=== PATIENT | male | born 1960 | race Caucasian/White ===

== ENCOUNTER 2016-11-22 21:18 | Inpatient (IN) ==
--- NOTE | 2016-11-23 01:23 | Internal Med History&Physical ---
<Giorgi Mcgee - Last Filed: 11/23/16 02:37> Date of Encounter: 11/23/16 Time of Encounter: 01:16 Assessment and Plan (1) Acute and chronic respiratory failure Status: Acute Patient did need additional oxygen requirement of 5 L up from home dose of 3 L, but he is back down to his baseline now Likely due to pneumonia vs. COPD exacerbation vs. edema/effusion CXR done at [facility] only demonstrated bibasilar opacity but did not comment on any fluid Will obtain CT chest for further assessment Continue on supplemental oxygen, breathing treatments Qualifiers: Qualified Code(s): J96.20 - Acute and chronic respiratory failure, unspecified whether with hypoxia or hypercapnia (2) ESRD on dialysis Status: Acute Consult Nephrology, appreciate management of dialysis on MWF He supposedly transferred here due to possibility of needing urgent dialysis, but this is not indicated at this point Will continue to monitor Cr, electrolytes, and avoid nephrotoxic agents (3) HCAP (healthcare-associated pneumonia) Status: Acute He currently receives dialysis and thus qualifies for HCAP Received Vanc/Zosyn while in [facility], will continue them here Obtain blood and sputum cultures, await sensitivities Awaiting chest CT as above for further investigation of bibasilar opacities (4) Abdominal pain Status: Chronic Patient complains of chronic lower abdominal pain worse after meals; s/p kassy/ appy Will start workup with non-contrast CT ab/pelvis Given that he is likely a vasculpath, consider SMA syndrome with MRA in future Qualifiers: Qualified Code(s): R10.9 - Unspecified abdominal pain (5) Hypertension Status: Chronic Blood pressures have been stable since admission, will closely monitor Will continue with home dose of Clonidine, Hydralazine, Norvasc, and Lisinopril Qualifiers: Qualified Code(s): I10 - Essential (primary) hypertension (6) COPD (chronic obstructive pulmonary disease) Status: Chronic Patient not having any additional sputum production and no wheezing heard on auscultation; does not appear to be in exacerbation Will continue scheduled breathing treatments, supplemental oxygen, and monitor pulse oximetry Qualifiers: Qualified Code(s): J44.9 - Chronic obstructive pulmonary disease, unspecified (7) Elevated troponin Status: Acute Troponin collected in previous facility of 0.25 He likely has chronic elevation in setting of ESRD and h/o CAD No chest pain currently so repeat troponins not indicated at this time (8) Insulin dependent diabetes mellitus Status: Chronic Hold home anti-diabetic medication for now Start on low dose SSI HENRIS patricia (9) DVT prophylaxis Status: Acute Heparin 5000 units BID Internal Medicine - H&P: HPI Chief complaint: Shortness of breath Admitted From: Hospital to Hospital Transfer Plans for Post Hospital Care: Home History of present illness: Mr. Prater is a 56 year old male who is transferred from [facility] with progressive shortness of breath over the past 3 days. He has history of end-stage renal disease on dialysis Sunday managed by Dr. Key. Patient's is at bedside and is able to assist with history. He states that he underwent dialysis earlier today and was severely short of breath afterwards and went to the hospital. Chest x-ray demonstrated bibasilar infiltrate concerning for pneumonia and he was given Vancomycin and Zosyn. He was transferred to the hospital due to fluid in the lungs possibly requiring dialysis, which they did not have available at that facility. He is normally on 3 L of oxygen throughout the day for COPD and has inhalers at home. Patient also states that he has had a nonproductive cough. states that his appetite has also been poor recently, and he has lost 7 pounds in the last week. 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 He also has a history of coronary artery disease status post 3 stents. Currently, patient states his breathing is slightly better while still on his home dose of 3 L of oxygen. He is complaining of abdominal pain, but states this chronic for him and they have not found out the cause. He denies any fevers, vomiting, diarrhea, blood in the stool or urine. Internal Medicine - H&P: Meds Albuterol Sulfate [Ventolin Hfa] 1 - 2 puff IH Q4-6H PRN 11/23/16 [History] Amlodipine [Norvasc] 5 - 10 mg PO DAILY 11/23/16 [History] Aspirin 325 mg PO DAILY 11/23/16 [History] Atenolol [Tenormin] 25 mg PO DAILY 11/23/16 [History] Atorvastatin Calcium [Lipitor] 20 mg PO QPM 11/23/16 [History] CloNIDine HCl [Clonidine HCl] 0.3 mg PO TID 11/23/16 [History] Docusate Sodium [Dok] 200 mg PO DAILY 11/23/16 [History] EPINEPHrine [Epipen] 0.3 mg IM ONCE PRN 11/23/16 [History] Ergocalciferol (VITAMIN D2) [Vitamin D2] 50,000 unit PO MO 11/23/16 [History] Escitalopram [Lexapro] 20 mg PO DAILY 11/23/16 [History] Furosemide [Lasix] 80 mg PO BID 11/23/16 [History] Hydralazine HCl 100 mg PO TID 11/23/16 [History] Insulin ASPART [NovoLOG] 2 - 10 unit SQ TID PRN 11/23/16 [History] Insulin Glargine [Lantus] 25 unit SQ HS 11/23/16 [History] Isosorbide MONOnitrate (24 HR) [Imdur] 60 mg PO DAILY 11/23/16 [History] LORazepam [Ativan] 1 mg PO BID PRN 11/23/16 [History] Lanthanum Carbonate [Fosrenol] 1,000 mg PO TIDWM 11/23/16 [History] Lisinopril [Zestril] 10 mg PO BID 11/23/16 [History] Lubiprostone [Amitiza] 24 mcg PO DAILY 11/23/16 [History] Methadone 10 mg PO Q8HR 11/23/16 [History] Nitroglycerin [Nitrostat] 0.4 mg SL Q5M PRN 11/23/16 [History] Omeprazole 20 mg PO DAILY 11/23/16 [History] Ondansetron ODT [Zofran ODT] 4 mg SL Q4H PRN 11/23/16 [History] Renal Vitamin [Renal Caps Softgel] 1 mg PO DAILY 11/23/16 [History] Tamsulosin HCl [Flomax] 0.4 - 0.8 mg PO DAILY 11/23/16 [History] Tizanidine HCl [Zanaflex] 4 mg PO TID PRN 11/23/16 [History] Trazodone HCl 100 mg PO HS 11/23/16 [History] Budesonide Neb [Pulmicort Neb] 0.5 mg IH BIDR #1 inhsol 11/25/16 [Rx] Levofloxacin 500 mg PO Q48H #3 tablet 11/25/16 [Rx] Simvastatin [Zocor] 40 mg PO HS 30 Days 11/25/16 [Rx] Allergies BEE VENOM Allergy (Uncoded 11/23/16 09:18) Difficulty Swallowing BARIUM IODIDE Adverse Reaction (Uncoded 11/23/16 09:18) Vomiting IVP DYE Adverse Reaction (Uncoded 11/23/16 09:18) Vomiting All Systems PM: A 10-system review of systems was performed and is negative for pertinent findings except as documented above in the HPI. - Constitutional Constitutional: lethargy, weight loss, no chills, no fever(s), no night sweats - EENT Eyes: no change in vision, no discharge, no pain, no photophobia Ears: no ear discharge, no ear pain, no tinnitus Nose, mouth and throat: no dysphagia, no nasal discharge, no neck pain, no sore throat - Cardiovascular Cardiovascular ROS IM: dyspnea, no chest pain, no diaphoresis, no lightheadedness, no palpitations, no syncope - Respiratory Respiratory: cough, dyspnea, no wheezing, no excessive phlegm production, no change in phlegm color - Gastrointestinal Gastrointestinal: abdominal pain (lower quadrants), nausea, no diarrhea, no hematemesis, no hematochezia, no melena, no vomiting - Genitourinary Genitourinary ROS male: difficulty urinating - Musculoskeletal Musculoskeletal ROS IM: numbness, tingling - Integumentary Integumentary IM: no rash, no unusual bruising - Neurological Neurological ROS: numbness, tingling, no confusion, no convulsions, no focal weakness, no tremor(s) - Hematologic/Lymphatic Hematologic/Lymphatic: no easy bruising - Constitutional Vitals: Temp Pulse Resp BP Pulse Ox 98.1 F 67 17 162/85 90 L 11/23/16 00:25 11/23/16 00:25 11/23/16 00:25 11/23/16 00:25 11/23/16 00:25 General appearance: Present: cooperative, A&O X 3, pleasant, no acute distress, answers questions appropriately - Head Head exam: Present: atraumatic, normocephalic - Eye Eye exam: Present: PERRL, conjuntiva pink, sclera anicteric - Neck Neck exam general surgery: Present: supple, trachea midline. Absent: lymphadenopathy - Respiratory Respiratory exam: Present: rales. Absent: accessory muscle use, rhonchi, wheezes - Cardiovascular Cardiovascular exam: Present: RRR, +S1, +S2. Absent: diastolic murmur, gallop, rubs, systolic murmur - GI/Abdominal GI/Abdominal exam: Present: normal bowel sounds, soft, tenderness (in lower quadrants, not worse with palpation ), no peritoneal signs. Absent: distended, firm, guarding - Extremities Exam Extremities exam: Present: warm, radial pulses palpable and symetrical. Absent : calf tenderness, cyanotic, pedal edema - Neurological Exam Neurological exam: Present: alert, oriented X3, no focal deficits. Absent: facial droop, speech deficit Additional comments: abnormal tongue movements suggestive of tardive dyskinesia - Skin Skin exam: Present: dry, intact <Jose M Gunderson - Last Filed: 11/29/16 05:57> Date of Encounter: 11/23/16 Internal Medicine - H&P: HPI History of present illness: Mr. Prater is a 56 year old male admitted to [facility] as a hospital transfer from [facility] ([place], [place]) emergency department where he presented with complaints of difficulty breathing. Transfer diagnoses included : a/c hypoxic respiratory failure; AE COPD; ESRD and hemodialysis dependent with volume overload; bibasilaratelectasis/ pneumonia; elevated troponin I measurement. The patient was visited and interviewed and examined. For this encounter, I have reviewed the documentation, treatment plan, and medical decision making. I examined this patient and my medical decision-making was reviewed with the Resident Physician. I agree with the documented findings, disposition and treatment plan as described except to the extent set forth below. Laboratory and radiographic database was reviewed, considered and discussed. Given the patient's presenting concerns, past medical history, clinical findings and symptoms, he is admitted at this time to undergo further evaluation and disposition. Orders written. Past Med Surg Social Fam HX - Past Medical History Source: old records reviewed Medical history: arthritis, CHF, COPD, coronary artery disease, diabetes, dialysis, GERD, hyperlipidemia, hypertension, osteoporosis, peripheral artery disease, renal disease, other Psychiatric history: anxiety, depression, other - Past Surgical History Surgical History: angioplasty/stent, appendectomy, arthroscopy, cataract, cholecystectomy, knee replacement, orthopedic, other, vascular surgery, other - Social History Smoking Status: Former smoker Alcohol use: unknown Drug use: unknown Occupational status: unemployed, disabled Current living situation: With Family Activity Level: Mostly sedentary Recent Out of Country Travel Within the Last 8 Weeks: No Exposure or Possible Exposure to Illness During Travel: No All Systems PM: A 10-system review of systems was performed and is negative for pertinent findings except as documented above in the HPI. - Constitutional Vitals: Temp Pulse Resp BP Pulse Ox 98.4 F 68 18 172/75 100 11/25/16 12:09 11/25/16 12:09 11/25/16 12:09 11/25/16 12:09 11/25/16 12:09 Internal Med - H&P Results - Labs CBC & Chem 7: 11/25/16 05:23 11/25/16 05:23 Labs: 11/23/16 06:27 VBG pH 7.46 H VBG pCO2 41 VBG pO2 62 H VBG HCO3 29.2 H Abnormal lab results WBC 4.2 K/mcL (4.3-11.1) L 11/25/16 05:23 RBC 4.06 M/mcL (4.19-5.50) L 11/25/16 05:23 Hgb 12.0 g/dL (12.9-16.9) L 11/25/16 05:23 Lymphocytes # 0.5 K/mcL (0.6-4.6) L 11/23/16 06:27 PT 16.1 Seconds (9.4-12.1) H 11/23/16 06:27 APTT 39.1 Seconds (26.0-36.0) H 11/23/16 06:27 VBG pH 7.46 pH Units (7.32-7.42) H 11/23/16 06:27 VBG pO2 62 mmHg (25-40) H 11/23/16 06:27 VBG HCO3 29.2 mEq/L (21-27) H 11/23/16 06:27 Potassium 5.2 mEq/L (3.5-4.5) H 11/25/16 05:23 Chloride 97 mEq/L (98-109) L 11/25/16 05:23 BUN 42 mg/dL (8-26) H 11/25/16 05:23 Creatinine 2.69 mg/dL (0.72-1.25) H 11/25/16 05:23 Est GFR ( Amer) 30 (> 60) L 11/25/16 05:23 Est GFR (Non-Af Amer) 25 (> 60) L 11/25/16 05:23 Glucose 131 mg/dL (70-99) H 11/25/16 05:23 POC Glucose 133 (58-89) H 11/25/16 11:46 Ionized Calcium 1.12 mmol/L (1.15-1.35) L 11/23/16 06:27 Magnesium 1.4 mg/dL (1.6-2.6) L 11/23/16 06:27 AST 40 Units/L (5-34) H 11/23/16 06:27 Alkaline Phosphatase 419 Units/L (38-126) H 11/23/16 06:27 Troponin I 0.30 ng/mL (0-0.03) H* 11/23/16 14:26 C-Reactive Protein 144 mg/L (Less than 5) H 11/23/16 11:13 Albumin 2.0 g/dL (3.5-5.0) L 11/23/16 06:27 Globulin 4.0 g/dL (2.4-3.5) H 11/23/16 06:27 Albumin/Globulin Ratio 0.5 (1.1-2.2) L 11/23/16 06:27 Triglycerides 150 mg/dL (< 150) H 11/23/16 06:27 HDL Cholesterol 15 mg/dL (40-59) L 11/23/16 06:27 Cholesterol/HDL Ratio 5.3 (0-4.9) H 11/23/16 06:27 Vancomycin Trough 8.8 mcg/mL (10-20) L 11/23/16 19:14 Laboratory Last Values WBC 4.2 K/mcL (4.3-11.1) L 11/25/16 05:23 RBC 4.06 M/mcL (4.19-5.50) L 11/25/16 05:23 Hgb 12.0 g/dL (12.9-16.9) L 11/25/16 05:23 Hct 38.0 % (37.5-50.1) 11/25/16 05:23 MCV 93.6 fL (83.0-100.0) 11/25/16 05:23 MCH 29.6 pg (28.0-33.3) 11/25/16 05:23 MCHC 31.6 g/dL (31.6-35.5) 11/25/16 05:23 RDW 14.2 % (11.5-14.5) 11/25/16 05:23 Plt Count 159 K/mcL (140-400) 11/25/16 05:23 MPV 10.6 fL (9.4-12.4) 11/25/16 05:23 Immature Gran % 0.8 % (0-4) 11/23/16 06:27 Seg Neutrophils % 88.0 % 11/23/16 06:27 Lymphocytes % 7.3 % 11/23/16 06:27 Monocytes % 3.7 % 11/23/16 06:27 Eosinophils % 0.0 % 11/23/16 06:27 Basophils % 0.2 % 11/23/16 06:27 Neutrophils # 5.8 K/mcL (1.6-8.9) 11/23/16 06:27 Lymphocytes # 0.5 K/mcL (0.6-4.6) L 11/23/16 06:27 Monocytes # 0.2 K/mcL (0.0-1.3) 11/23/16 06:27 Eosinophils # 0.0 K/mcL (0.0-0.6) 11/23/16 06:27 Basophils # 0.0 K/mcL (0.0-0.2) 11/23/16 06:27 PT 16.1 Seconds (9.4-12.1) H 11/23/16 06:27 INR 1.5 11/23/16 06:27 APTT 39.1 Seconds (26.0-36.0) H 11/23/16 06:27 VBG pH 7.46 pH Units (7.32-7.42) H 11/23/16 06:27 VBG pCO2 41 mmHg (41-51) 11/23/16 06:27 VBG pO2 62 mmHg (25-40) H 11/23/16 06:27 VBG HCO3 29.2 mEq/L (21-27) H 11/23/16 06:27 Sodium 137 mEq/L (136-145) 11/25/16 05:23 Potassium 5.2 mEq/L (3.5-4.5) H 11/25/16 05:23 Chloride 97 mEq/L (98-109) L 11/25/16 05:23 Carbon Dioxide 24 mEq/L (19-29) 11/25/16 05:23 BUN 42 mg/dL (8-26) H 11/25/16 05:23 Creatinine 2.69 mg/dL (0.72-1.25) H 11/25/16 05:23 Est GFR ( Amer) 30 (> 60) L 11/25/16 05:23 Est GFR (Non-Af Amer) 25 (> 60) L 11/25/16 05:23 BUN/Creatinine Ratio 16 (6-26) 11/25/16 05:23 Glucose 131 mg/dL (70-99) H 11/25/16 05:23 POC Glucose 133 (58-89) H 11/25/16 11:46 Est Mean Plasma Glucose 91 mg/dl 11/23/16 06:27 Hemoglobin A1c 4.8 % (-5.6) 11/23/16 06:27 Calculated Osmolality 296 (280-300) 11/25/16 05:23 Lactic Acid 0.9 mmol/L (0.5-2.2) 11/23/16 06:27 Calcium 9.6 mg/dL (8.6-10.8) 11/25/16 05:23 Ionized Calcium 1.12 mmol/L (1.15-1.35) L 11/23/16 06:27 Phosphorus 4.1 mg/dL (2.3-4.7) 11/23/16 06:27 Magnesium 1.4 mg/dL (1.6-2.6) L 11/23/16 06:27 Total Bilirubin 1.0 mg/dL (0.2-1.2) 11/23/16 06:27 AST 40 Units/L (5-34) H 11/23/16 06:27 ALT 19 Units/L (0-55) 11/23/16 06:27 Alkaline Phosphatase 419 Units/L (38-126) H 11/23/16 06:27 Troponin I 0.30 ng/mL (0-0.03) H* 11/23/16 14:26 C-Reactive Protein 144 mg/L (Less than 5) H 11/23/16 11:13 Serum Total Protein 6.0 g/dL (6.0-8.3) 11/23/16 06:27 Albumin 2.0 g/dL (3.5-5.0) L 11/23/16 06:27 Globulin 4.0 g/dL (2.4-3.5) H 11/23/16 06:27 Albumin/Globulin Ratio 0.5 (1.1-2.2) L 11/23/16 06:27 Triglycerides 150 mg/dL (< 150) H 11/23/16 06:27 Cholesterol 80 mg/dL (< 200) 11/23/16 06:27 LDL Cholesterol, Calc 35 mg/dL (0-99) 11/23/16 06:27 VLDL Cholesterol, Calc 30 mg/dL (< 31) 11/23/16 06:27 HDL Cholesterol 15 mg/dL (40-59) L 11/23/16 06:27 Cholesterol/HDL Ratio 5.3 (0-4.9) H 11/23/16 06:27 TSH 2.062 mcIU/mL (0.350-4.840) 11/23/16 11:13 Vancomycin Trough 8.8 mcg/mL (10-20) L 11/23/16 19:14 Hep Bs Antigen Nonreactive (Nonreactive) 11/24/16 09:23 Hep Bs Antibody 0.08 mIU/mL 11/24/16 09:23 - ABG Interpretation ABG results: 11/23/16 06:27 VBG pH 7.46 H VBG pCO2 41 VBG pO2 62 H VBG HCO3 29.2 H - Impressions ITS Impressions Abdomen/Pelvis CT 11/23/16 08:30 IMPRESSION: 1. Diffuse infectious bronchiolitis in both lungs with superimposed multifocal pneumonia that is most prominent in the lower lobes. 2. Loculated fluid in the posteromedial base of the left hemithorax the measuring approximately 9.4 cm x 6.3 cm x 3.7 cm. The most likely consideration is loculated left pleural effusion; there are no definite findings of empyema. Alternately, this could represents an intrapulmonary abscess within the left lower lobe. 3. Trace free-flowing bilateral pleural effusions and severe anasarca. 4. Minimal bronchial wall thickening with mild to moderate involvement in the right lower lobe, likely bronchitis. 5. No definite acute abnormalities are identified in the abdomen or pelvis. 6. Mild cardiomegaly with at least mild coronary atherosclerotic calcifications with suspected changes of stent grafting. 7. Mildly dilated pulmonary arteries, a finding that can be seen with pulmonary hypertension. 8. A few enlarged mediastinal lymph nodes are likely reactive. 9. Moderate hepatosplenomegaly. 10. Mild to moderate stool volume. 11. Circumferential urinary bladder wall thickening could be related to incomplete distention, chronic outlet obstruction given mild prostatomegaly, and/or cystitis. D/ / Jaswinder Barron MD / Jaswinder Barron MD Interpreting Provider: Jaswinder Barron MD Chest CT 11/23/16 08:30 IMPRESSION: 1. Diffuse infectious bronchiolitis in both lungs with superimposed multifocal pneumonia that is most prominent in the lower lobes. 2. Loculated fluid in the posteromedial base of the left hemithorax the measuring approximately 9.4 cm x 6.3 cm x 3.7 cm. The most likely consideration is loculated left pleural effusion; there are no definite findings of empyema. Alternately, this could represents an intrapulmonary abscess within the left lower lobe. 3. Trace free-flowing bilateral pleural effusions and severe anasarca. 4. Minimal bronchial wall thickening with mild to moderate involvement in the right lower lobe, likely bronchitis. 5. No definite acute abnormalities are identified in the abdomen or pelvis. 6. Mild cardiomegaly with at least mild coronary atherosclerotic calcifications with suspected changes of stent grafting. 7. Mildly dilated pulmonary arteries, a finding that can be seen with pulmonary hypertension. 8. A few enlarged mediastinal lymph nodes are likely reactive. 9. Moderate hepatosplenomegaly. 10. Mild to moderate stool volume. 11. Circumferential urinary bladder wall thickening could be related to incomplete distention, chronic outlet obstruction given mild prostatomegaly, and/or cystitis. D/ / Jaswinder Barron MD / Jaswinder Barron MD Interpreting Provider: Jaswinder Barron MD Abdomen CTA 11/25/16 08:00 IMPRESSION: 1. 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 Otherwise unremarkable CTA of the abdomen. Mild diffuse atherosclerotic plaque. 2. Re-demonstration of loculated left pleural effusion and bibasilar opacification, left greater than right. 3. Small quantity of intraabdominal ascites. Diffuse mesenteric and retroperitoneal edema with anasarca suggesting an element of right heart failure. D/ / 11/25/2016 09:36:14 Candido Aponte MD / griselda Interpreting Provider: Candido Aponte MD Abdomen/Pelvis CT 11/23/16 08:30 IMPRESSION: 1. Diffuse infectious bronchiolitis in both lungs with superimposed multifocal pneumonia that is most prominent in the lower lobes. 2. Loculated fluid in the posteromedial base of the left hemithorax the measuring approximately 9.4 cm x 6.3 cm x 3.7 cm. The most likely consideration is loculated left pleural effusion; there are no definite findings of empyema. Alternately, this could represents an intrapulmonary abscess within the left lower lobe. 3. Trace free-flowing bilateral pleural effusions and severe anasarca. 4. Minimal bronchial wall thickening with mild to moderate involvement in the right lower lobe, likely bronchitis. 5. No definite acute abnormalities are identified in the abdomen or pelvis. 6. Mild cardiomegaly with at least mild coronary atherosclerotic calcifications with suspected changes of stent grafting. 7. Mildly dilated pulmonary arteries, a finding that can be seen with pulmonary hypertension. 8. A few enlarged mediastinal lymph nodes are likely reactive. 9. Moderate hepatosplenomegaly. 10. Mild to moderate stool volume. 11. Circumferential urinary bladder wall thickening could be related to incomplete distention, chronic outlet obstruction given mild prostatomegaly, and/or cystitis. D/ / Jaswinder Barron MD / Jaswinder Barron MD Interpreting Provider: Jaswinder Barron MD Chest CT 11/23/16 08:30 IMPRESSION: 1. Diffuse infectious bronchiolitis in both lungs with superimposed multifocal pneumonia that is most prominent in the lower lobes. 2. Loculated fluid in the posteromedial base of the left hemithorax the measuring approximately 9.4 cm x 6.3 cm x 3.7 cm. The most likely consideration is loculated left pleural effusion; there are no definite findings of empyema. Alternately, this could represents an intrapulmonary abscess within the left lower lobe. 3. Trace free-flowing bilateral pleural effusions and severe anasarca. 4. Minimal bronchial wall thickening with mild to moderate involvement in the right lower lobe, likely bronchitis. 5. No definite acute abnormalities are identified in the abdomen or pelvis. 6. Mild cardiomegaly with at least mild coronary atherosclerotic calcifications with suspected changes of stent grafting. 7. Mildly dilated pulmonary arteries, a finding that can be seen with pulmonary hypertension. 8. A few enlarged mediastinal lymph nodes are likely reactive. 9. Moderate hepatosplenomegaly. 10. Mild to moderate stool volume. 11. Circumferential urinary bladder wall thickening could be related to incomplete distention, chronic outlet obstruction given mild prostatomegaly, and/or cystitis. D/ / Jaswinder Barron MD / Jaswinder Barron MD Interpreting Provider: Jaswinder Barron MD Abdomen CTA 11/25/16 08:00 IMPRESSION: 1. 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 Otherwise unremarkable CTA of the abdomen. Mild diffuse atherosclerotic plaque. 2. Re-demonstration of loculated left pleural effusion and bibasilar opacification, left greater than right. 3. Small quantity of intraabdominal ascites. Diffuse mesenteric and retroperitoneal edema with anasarca suggesting an element of right heart failure. D/ / 11/25/2016 09:36:14 Candido Aponte MD / griselda Interpreting Provider: Candido Aponte MD - Attending Attestation My signature below is to certify that this patient is under my care and that I, or the Resident Physician working with me, has had a [id number] encounter with this patient. Plan of care has been reviewed and discussed in detail with the patient. Questions addressed. Advance care directive discussion briefly addressed. Patient does not declare any healthcare restrictions at this time. Outpatient medications schedules will be reviewed, confirmed and facilitated as appropriate. Reconciliation of home treatments including adjustments, substitutions and reintroduction into the treatment regimen will address necessary maintenance therapies for chronic pre-existing medical conditions. Smoking cessation counseling briefly addressed. Patient declares self a nonsmoker. Hospital course will be dependent upon clinical findings, treatment response and potential consultative interventions. The patient is at risk for acute clinical decline and morbidity given presenting chief complaints, findings and associated comorbid conditions. Condition is serious. Prognosis is guarded. CODE STATUS is full.
[2016-11-23] MEDS ORDERED: Acetaminophen 325 MG TABLET PO PRN (01:51)
[2016-11-23] MEDS ORDERED: *HR* Dextrose 50 % in Water (Syg) 50 ML SYRINGE IVP PRN (01:51)
[2016-11-23] MEDS ORDERED: D5% in Water 1,000 ML IV PRN (01:51)
[2016-11-23] MEDS ORDERED: Naloxone 0.4 MG/ML INJ IVP PRN (01:51)
[2016-11-23] MEDS ORDERED: Dextrose Gel 15 GM PO PRN ×2 (01:51)
[2016-11-23] MEDS ORDERED: tiZANidine 4 MG TABLET PO PRN (01:59)
[2016-11-23] MEDS ORDERED: Albuterol 2.5 MG/3 ML NEBULIZER IH PRN (01:59)
[2016-11-23] MEDS ORDERED: *HR* Methadone 10 MG TABLET PO ONE ×2 (02:30→02:45)
[2016-11-23] MEDS: traZODone 50 MG TABLET PO SCH ×2 (02:39→20:23)
[2016-11-23] MEDS ORDERED: *HR* Morphine 2 MG/ML SYRINGE IVP PRN (02:40)
[2016-11-23] MEDS: Ondansetron ODT 4 MG TAB.RAPDIS SL PRN ×2 (02:41→15:14)
[2016-11-23] MEDS ORDERED: VANCOMYCIN IVPB SCH (03:00)
[2016-11-23] MEDS ORDERED: WATER IVPB SCH (03:00)
[2016-11-23] MEDS ORDERED: D5 IVPB SCH (03:00)
[2016-11-23] MEDS: Ipratropium/Albuterol Neb 3 ML IH SCH ×4 (04:34→21:03)
[2016-11-23 06:41] LABS: VBG HCO3 29.2 mEq/L (21-27); VBG PH 7.46 pH Units (7.32-7.42)
[2016-11-23 06:44] LABS: Basophils % 0.2 %; Hematocrit 39.1 % (37.5-50.1); Hemoglobin 12.3 g/dL (12.9-16.9); Immature Granulocytes % 0.8 % (0-4); Lymphocytes # 0.5 K/mcL (0.6-4.6); Lymphocytes % 7.3 %; Mean Corpuscular HGB Conc 31.5 g/dL (31.6-35.5); Mean Corpuscular Hemoglobin 29.1 pg (28.0-33.3); Mean Corpuscular Volume 92.4 fL (83.0-100.0); Mean Platelet Volume 10.4 fL (9.4-12.4); Monocytes # 0.2 K/mcL (0.0-1.3); Monocytes % 3.7 %; Neutrophils # 5.8 K/mcL (1.6-8.9); Platelet Count 180 K/mcL (140-400); Red Blood Count 4.23 M/mcL (4.19-5.50); Red Cell Distribution Width 14.5 % (11.5-14.5)
[2016-11-23] MEDS: *HR* Heparin 5,000 UNIT/ML VIAL SQ SCH ×2 (06:51→17:47)
[2016-11-23 06:53] LABS: Ionized Calcium 1.12 mmol/L (1.15-1.35)
[2016-11-23] MEDS: *HR* OxyCODONE Immed Rel 5 MG TABLET PO PRN ×2 (06:53→15:14)
[2016-11-23 06:58] LABS: INR 1.5; Prothrombin Time 16.1 Seconds (9.4-12.1)
[2016-11-23 07:01] LABS: Activated Partial Thrombo Time 39.1 Seconds (26.0-36.0)
[2016-11-23 07:04] LABS: Albumin/Globulin Ratio 0.5 (1.1-2.2); Calcium 9.5 mg/dL (8.6-10.8); Chol/HDL Ratio 5.3 (0-4.9); Magnesium 1.4 mg/dL (1.6-2.6); Phosphorous 4.1 mg/dL (2.3-4.7); Potassium 4.2 mEq/L (3.5-4.5)
[2016-11-23 07:10] LABS: Hemoglobin A1C 4.8 %
[2016-11-23] MEDS ORDERED: Piperacillin/Tazobactam 3.375 GM in D5% in Water (Mini-Bag+) 100 ML IVPB SCH (08:00)
[2016-11-23] MEDS: Insulin LISPRO 300 UNITS/3 ML VIAL SQ SCH ×4 (09:18→21:39)
[2016-11-23] MEDS: Aspirin 325 MG TABLET PO SCH (09:44)
[2016-11-23] MEDS: *HR* Methadone 10 MG TABLET PO SCH ×2 (09:44→17:46)
[2016-11-23] MEDS: Furosemide 40 MG TABLET PO SCH ×2 (09:44→17:47)
[2016-11-23] MEDS: cloNIDine HCl 0.1 MG TABLET PO SCH ×3 (09:45→20:22)
[2016-11-23] MEDS: hydrALAZINE 25 MG TABLET PO SCH ×2 (09:45→17:46)
[2016-11-23] MEDS: amLODIPine 5 MG TABLET PO SCH (09:46)
[2016-11-23] MEDS: predniSONE 20 MG TABLET PO SCH (09:49)
[2016-11-23] MEDS ORDERED: Budesonide/Formoterol 160/4.5 MDI IH SCH (10:00)
--- NOTE | 2016-11-23 11:16 | Nephrology Progress Note ---
Date of Encounter: 11/23/16 Time of Encounter: 10:10 - Assessment and Plan (1) ESRD on dialysis Current Visit: Yes Status: Acute CT chest-diffuse bronchiolitis superimposed on multifocal PNA most prominent in lower lobes. HD tomorrow, keeping [facility] schedule. Subjective Interval history: Mr. Prater is a 56 year old male with ESRD who [facility], last dialysis yesterday. He had been being treated outpatient for URI. He was transferred from [facility] with progressive shortness of breath for past three days. . CXR showed bibasilar infiltrate concerning for PA and was given Vanco and Zosyn. He does admit poor appetite and weight loss. Denies fevers, vomiting, diarrhea, blood in urine or stools. Today he states he is breathing much easier. at bedside. Objective - Vital Signs Vital signs: Vital Signs Temp Pulse Resp BP Pulse Ox 11/23/16 09:53 18 95 11/23/16 09:40 97 11/23/16 08:17 70 144/62 97 11/23/16 05:08 97.7 F 66 16 176/75 90 L 11/23/16 04:34 18 92 L 11/23/16 00:25 98.1 F 67 17 162/85 90 L Intake and Output 11/22/16 11/23/16 11/23/16 23:59 07:59 15:59 Intake Total 240 / 240 240 / 240 Output Total 0 / 0 Balance 240 / 240 240 / 240 Intake: Oral 240 / 240 240 / 240 Output: Urine 0 / 0 Other: Meal crackers and pudding Breakfast Percent of Meal Consumed 60% Weight 170 kg Blood Glucose* 142 98 Patient Weight 11/23/16 23:59 Weight 170 kg - General Appearance General appearance: Present: chronically ill, frail EENT: Present: mucous membranes moist Neck: Present: no JVD Respiratory: Present: rhonchi Cardiology: Present: regular rate, regular rhythm Additional Comments: trace pitting Gastrointestinal: Present: normoactive bowel sounds, no tenderness Integumentary: Present: warm and dry Neurologic: Present: alert and oriented x3 Psychiatric: Present: mood/affect appropriate, cooperative - Lab 11/23/16 06:27 11/23/16 06:27 Most recent lab results Calcium 9.5 mg/dL (8.6-10.8) 11/23/16 06:27 Phosphorus 4.1 mg/dL (2.3-4.7) 11/23/16 06:27 Magnesium 1.4 mg/dL (1.6-2.6) L 11/23/16 06:27 Consult Discharge Plan - Plan Referrals: Melissa Juarez [Primary Care Provider] -
[2016-11-23 12:37] LABS: Thyroid Stimulating Hormone 2.062 mcIU/mL (0.350-4.840)
[2016-11-23] MEDS ORDERED: Levofloxacin 500 MG/100 ML 500 MG/100 ML BAG IVPB SCH (17:00)
[2016-11-23] MEDS: Piperacillin/Tazobactam 3.375 GM in D5% in Water (Mini-Bag+) 100 ML IVPB SCH (18:39)
[2016-11-23] MEDS: *HR* HYDROcodone/Acet 7.5/325 mg TABLET PO PRN (19:51)
[2016-11-23] MEDS: *HR* LORazepam 0.5 MG TABLET PO PRN (20:23)
[2016-11-23] MEDS: Budesonide Neb 0.5 MG/2 ML IH SCH (21:04)
[2016-11-24] MEDS: *HR* Methadone 10 MG TABLET PO SCH ×3 (00:04→16:26)
[2016-11-24] MEDS: Ondansetron ODT 4 MG TAB.RAPDIS SL PRN ×3 (00:04→17:01)
[2016-11-24] MEDS: hydrALAZINE 25 MG TABLET PO SCH ×3 (01:20→16:27)
[2016-11-24] MEDS: Piperacillin/Tazobactam 3.375 GM in D5% in Water (Mini-Bag+) 100 ML IVPB SCH (01:21)
[2016-11-24] MEDS: Ipratropium/Albuterol Neb 3 ML IH SCH ×4 (04:42→23:06)
[2016-11-24] MEDS: *HR* Heparin 5,000 UNIT/ML VIAL SQ SCH ×2 (05:59→18:32)
[2016-11-24 06:30] LABS: Calcium 9.4 mg/dL (8.6-10.8); Potassium 4.8 mEq/L (3.5-4.5)
[2016-11-24] MEDS: Aspirin 325 MG TABLET PO SCH (08:35)
[2016-11-24] MEDS: predniSONE 20 MG TABLET PO SCH (08:36)
[2016-11-24] MEDS: cloNIDine HCl 0.1 MG TABLET PO SCH ×3 (08:37→20:48)
[2016-11-24] MEDS: Furosemide 40 MG TABLET PO SCH ×2 (08:37→16:27)
[2016-11-24] MEDS: amLODIPine 5 MG TABLET PO SCH ×2 (08:37→20:48)
[2016-11-24] MEDS: Insulin LISPRO 300 UNITS/3 ML VIAL SQ SCH ×4 (08:39→21:47)
--- NOTE | 2016-11-24 09:32 | Nephrology Progress Note ---
Date of Encounter: 11/24/16 Time of Encounter: 09:30 - Assessment and Plan (1) ESRD on dialysis Current Visit: Yes Status: Acute Patient will undergo dialysis today. I will make some changes to his antihypertensive regimen. Patient continues on antibiotics for underlying pneumonia. (2) Benign hypertension with ESRD (end-stage renal disease) Current Visit: Yes Status: Acute (3) HCAP (healthcare-associated pneumonia) Current Visit: Yes Status: Acute (4) COPD (chronic obstructive pulmonary disease) Current Visit: Yes Status: Chronic Qualifiers: Qualified Code(s): J44.9 - Chronic obstructive pulmonary disease, unspecified Subjective Interval history: Patient reports she feels better. He is requesting to go home. Blood pressure is elevated. He is scheduled for his usual dialysis today. Patient says his appetite is improved and that he has been eating better. Objective - Vital Signs Vital signs: Vital Signs Temp Pulse Resp BP Pulse Ox 11/24/16 04:43 95 11/24/16 04:23 98.2 F 63 18 175/75 97 11/24/16 01:10 98.1 F 66 20 220/75 99 11/23/16 21:07 18 96 11/23/16 21:04 98.0 F 64 20 128/44 98 11/23/16 16:00 96.3 F L 71 142/58 99 11/23/16 15:55 16 95 11/23/16 12:05 98 F 66 16 174/80 97 11/23/16 09:53 18 95 11/23/16 09:40 97 Intake and Output 11/23/16 11/24/16 11/24/16 23:59 07:59 15:59 Intake Total 300 / 300 50 / 50 Output Total 0 / 0 0 / 0 Balance 300 / 300 50 / 50 Intake: IV Fluids 100 / 100 Zosyn 3.375 GM In 100 / 100 Dextrose 5% (Minibag+) 100 ML 100 ML @ 25 mls/hr IVPB Q8HR [facility] Rx#: [id number] Oral 200 / 200 50 / 50 Output: Urine 0 / 0 0 / 0 Other: Weight 75.16 kg Blood Glucose* 167 Patient Weight 11/24/16 23:59 Weight 75.16 kg - General Appearance Exam: Patient is alert and oriented. He appears chronically ill. He is in no acute distress. Lung sounds bilaterally. Heart regular rhythm. Abdomen is benign. Lower extremity show no peripheral edema. There is a functioning AV fistula in the left arm. - Lab 11/23/16 06:27 11/24/16 05:06 Most recent lab results Calcium 9.4 mg/dL (8.6-10.8) 11/24/16 05:06 Phosphorus 4.1 mg/dL (2.3-4.7) 11/23/16 06:27 Magnesium 1.4 mg/dL (1.6-2.6) L 11/23/16 06:27 Consult Discharge Plan - Plan Referrals: Melissa Juarez [Primary Care Provider] -
[2016-11-24] MEDS ORDERED: 0.9 % Sodium Chloride 250 ML IV PRN (09:33)
[2016-11-24] MEDS: Budesonide Neb 0.5 MG/2 ML IH SCH ×2 (10:06→23:06)
[2016-11-24 12:23] LABS: Hepatitis B Surface Antibody 0.08 mIU/mL; Hepatitis B Surface Antigen Nonreactive (Nonreactive)
--- NOTE | 2016-11-24 14:18 | Internal Med Progress Note ---
<CodyAnnekhari Mcfarlane - Last Filed: 11/24/16 15:20> Date of Encounter: 11/24/16 Time of Encounter: 13:50 - Assessment and plan (1) HCAP (healthcare-associated pneumonia) Current Visit: Yes Status: Acute Assessment and plan: Patient is back to baseline O2 requirement of 3L down from 5L yesterday. CT with diffuse bronchiolitis with superimposed multifocal pneumonia. Levaquin, Zosyn Steroids O2 supplementation Breathing treatments (2) Acute and chronic respiratory failure Current Visit: Yes Status: Acute Assessment and plan: Plan as above Qualifiers: Respiratory failure complication: unspecified whether with hypoxia or hypercapnia Qualified Code(s): J96.20 - Acute and chronic respiratory failure , unspecified whether with hypoxia or hypercapnia (3) ESRD on dialysis Current Visit: Yes Status: Acute Assessment and plan: Potassium 4.8 today with Cr 2.87 Dialysis planned for today Followed by nephrology (4) Abdominal pain Current Visit: Yes Status: Resolved Assessment and plan: CT with evidence of significant calcification of splenic and mesenteric arteries 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 Qualifiers: Abdominal location: unspecified location Qualified Code(s): R10.9 - Unspecified abdominal pain (5) Hypertension Current Visit: Yes Status: Chronic Assessment and plan: Continue home medications Qualifiers: Hypertension type: essential hypertension Qualified Code(s): I10 - Essential (primary) hypertension (6) COPD (chronic obstructive pulmonary disease) Current Visit: Yes Status: Chronic Assessment and plan: Continue home medications Qualifiers: COPD type: unspecified COPD Qualified Code(s): J44.9 - Chronic obstructive pulmonary disease, unspecified (7) Elevated troponin Current Visit: Yes Status: Acute Assessment and plan: Elevation likely chronic in setting of ESRD (8) Insulin dependent diabetes mellitus Current Visit: Yes Status: Chronic Assessment and plan: Low-dose ACHS (9) DVT prophylaxis Current Visit: Yes Status: Acute Assessment and plan: Heparin 5,000 units BID - Time Spent With Patient 25 - 35 minutes (30 minutes Including seeing patient and planning care) - Subjective Interval history: Patient is seen during dialysis. He states that he is able to breathe better than on admission. Denies dyspnea, chest pain, abdominal pain, problems stooling. - Constitutional Vitals: Temp Pulse Resp BP Pulse Ox 97.6 F 65 16 156/41 98 11/24/16 08:55 11/24/16 08:55 11/24/16 08:55 11/24/16 08:55 11/24/16 08:55 General appearance: Present: cachectic, cooperative, disheveled, A&O X 3, pleasant, no acute distress, answers questions appropriately Exam: Patient with continuous rhythmic movements of tongue protrusion. - Head Head exam: Present: atraumatic, normal inspection - Eye Eye exam: Present: EOMI. Absent: scleral icterus - ENT ENT exam: Present: mucous membranes dry - Neck Neck exam general surgery: Present: full ROM, normal inspection - Respiratory Respiratory exam: Present: rhonchi (most prominant in lower lung hayden), wheezes. Absent: accessory muscle use, chest wall tenderness, rales, respiratory distress, tachypnea - Cardiovascular Cardiovascular exam: Present: distant heart sounds (difficult to apprecite heart sounds over loud wheeze), RRR - GI/Abdominal GI/Abdominal exam: Present: normal bowel sounds, soft. Absent: tenderness, no peritoneal signs - Extremities Exam Extremities exam: Present: warm Additional comments: AV fistula in place to left arm Internal Medicine: Result - Labs CBC & Chem 7: 11/23/16 06:27 11/24/16 05:06 Labs: BMP 11/24/16 05:06 Sodium 136 Potassium 4.8 H Chloride 98 Carbon Dioxide 24 BUN 50 H D Creatinine 2.87 H Glucose 126 H Calcium 9.4 Cardiac Enzymes 11/23/16 Range/Units 14:26 Troponin I 0.30 H* (0-0.03) ng/mL - ABG Interpretation ABG results: PT/INR, D-dimer PT 16.1 Seconds (9.4-12.1) H 11/23/16 06:27 Consult Discharge Plan - Plan Referrals: Melissa Juarez [Primary Care Provider] - (Please follow up with your PCP... Office will call for an appointment) - Attending Attestation I examined this patient and my medical decision-making was reviewed with the CARRIAGE OPERATOR/PA/Advanced Practice Nurse/Resident Physician. I agree with the documented findings, disposition and treatment plan as described except to the extent set forth below. <Jevon Garcia H - Last Filed: 11/24/16 15:57> Date of Encounter: 11/24/16 - Constitutional Vitals: Temp Pulse Resp BP Pulse Ox 97.6 F 65 16 156/41 98 11/24/16 08:55 11/24/16 08:55 11/24/16 08:55 11/24/16 08:55 11/24/16 08:55 Internal Medicine: Result - Labs CBC & Chem 7: 11/23/16 06:27 11/24/16 05:06 Labs: BMP 11/24/16 05:06 Sodium 136 Potassium 4.8 H Chloride 98 Carbon Dioxide 24 BUN 50 H D Creatinine 2.87 H Glucose 126 H Calcium 9.4 - ABG Interpretation ABG results: PT/INR, D-dimer PT 16.1 Seconds (9.4-12.1) H 11/23/16 06:27 - Attending Attestation Discontinue Zosyn COntinue Levaquin day 2 Chronic abdominal pain likely related to severe abdominal arterial calcifications, consider possible SMA stenosis Vascular surgery recommendations appreciated.
[2016-11-24] MEDS ORDERED: Piperacillin/Tazobactam 3.375 GM in D5% in Water (Mini-Bag+) 100 ML IVPB SCH (16:00)
--- NOTE | 2016-11-24 18:10 | Vascular/Endovasc Consult Note ---
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 He is unsure if different types of food are more likely to cause his symptoms. He denies classic symptoms of intestinal angina or food aversion. His does state that he does complain of pain after eating and that he has lost 10 pounds in the last month. He has no evidence of acute mesenteric ischemia. He has calcifications on his CT scan. He has been scheduled for a mesenteric CT angiogram. He will be premedicated due to his intravenous contrast allergy. Continue with current diet. Will review CT scan when available. (2) Benign hypertension with ESRD (end-stage renal disease) Current Visit: Yes Status: Chronic The patient was counseled regarding atherosclerotic risk factor reduction. (3) ESRD on dialysis Current Visit: Yes Status: Chronic (4) COPD (chronic obstructive pulmonary disease) Current Visit: Yes Status: Chronic Qualifiers: COPD type: unspecified COPD Qualified Code(s): J44.9 - Chronic obstructive pulmonary disease, unspecified (5) Hypertension Current Visit: Yes Status: Chronic Qualifiers: Hypertension type: essential hypertension Qualified Code(s): I10 - Essential (primary) hypertension (6) Insulin dependent diabetes mellitus Current Visit: Yes Status: Chronic (7) Abdominal pain Current Visit: Yes Status: Chronic Qualifiers: Abdominal location: unspecified location Qualified Code(s): R10.9 - Unspecified abdominal pain - History of Present Illness Consult date: 11/24/16 Consult reason: Abdominal pain with eating Chief complaint: Abdominal pain and nausea History of present illness: Mr. Prater is a 56 year old male with multiple medical comorbidities including hypertension, hyperlipidemia, diabetes, COPD and ESRD on hemodialysis. He was admitted to [facility] with pneumonia. The patient reports that he has nausea after eating meals. He denies pain associated with his eating. He denies food aversion. He denies diarrhea or constipation. His states that he has lost more than 10 pounds in the last month and does complain of pain with eating. Due to these symptoms, he underwent a CT scan. He was noted to have mesenteric vessel calcifications. Vascular surgery was then consulted for further evaluation. At the time of evaluation, the patient is alert and comfortable. He denies chest pain or shortness of breath. Past Med Surg Social Fam HX - Past Medical History Medical history: COPD, coronary artery disease, CVA, diabetes, dialysis, hyperlipidemia, hypertension, peripheral artery disease, renal disease Psychiatric history: no psych history - Past Surgical History Surgical History: angioplasty/stent, appendectomy, cholecystectomy - Social History Smoking Status: Former smoker Smokeless Tobacco Status: No Alcohol use: none Drug use: none Medications and Allergies Albuterol Sulfate [Ventolin Hfa] 1 - 2 puff IH Q4-6H PRN 11/23/16 [History] Amlodipine [Norvasc] 5 - 10 mg PO DAILY 11/23/16 [History] Aspirin 325 mg PO DAILY 11/23/16 [History] Atenolol [Tenormin] 25 mg PO DAILY 11/23/16 [History] Atorvastatin Calcium [Lipitor] 20 mg PO QPM 11/23/16 [History] CloNIDine HCl [Clonidine HCl] 0.3 mg PO TID 11/23/16 [History] Docusate Sodium [Dok] 200 mg PO DAILY 11/23/16 [History] EPINEPHrine [Epipen] 0.3 mg IM ONCE PRN 11/23/16 [History] Ergocalciferol (VITAMIN D2) [Vitamin D2] 50,000 unit PO MO 11/23/16 [History] Escitalopram [Lexapro] 20 mg PO DAILY 11/23/16 [History] Furosemide [Lasix] 80 mg PO BID 11/23/16 [History] Hydralazine HCl 100 mg PO TID 11/23/16 [History] Insulin ASPART [NovoLOG] 2 - 10 unit SQ TID PRN 11/23/16 [History] Insulin Glargine [Lantus] 25 unit SQ HS 11/23/16 [History] Isosorbide MONOnitrate (24 HR) [Imdur] 60 mg PO DAILY 11/23/16 [History] LORazepam [Ativan] 1 mg PO BID PRN 11/23/16 [History] Lanthanum Carbonate [Fosrenol] 1,000 mg PO TIDWM 11/23/16 [History] Lisinopril [Zestril] 10 mg PO BID 11/23/16 [History] Lubiprostone [Amitiza] 24 mcg PO DAILY 11/23/16 [History] Methadone 10 mg PO Q8HR 11/23/16 [History] Nitroglycerin [Nitrostat] 0.4 mg SL Q5M PRN 11/23/16 [History] Omeprazole 20 mg PO DAILY 11/23/16 [History] Ondansetron ODT [Zofran ODT] 4 mg SL Q4H PRN 11/23/16 [History] Renal Vitamin [Renal Caps Softgel] 1 mg PO DAILY 11/23/16 [History] Tamsulosin HCl [Flomax] 0.4 - 0.8 mg PO DAILY 11/23/16 [History] Tizanidine HCl [Zanaflex] 4 mg PO TID PRN 11/23/16 [History] Trazodone HCl 100 mg PO HS 11/23/16 [History] Allergies BEE VENOM Allergy (Uncoded 11/23/16 09:18) Difficulty Swallowing BARIUM IODIDE Adverse Reaction (Uncoded 11/23/16 09:18) Vomiting IVP DYE Adverse Reaction (Uncoded 11/23/16 09:18) Vomiting All Systems Review: A 10-system review of systems was performed and is negative for pertinent findings except as documented above in the HPI. Exam Vital Signs, Last 4 Hours Temp Pulse Resp BP Pulse Ox 11/24/16 16:05 97.5 F L 72 16 138/82 95 11/24/16 14:50 97.5 F L 16 124/80 11/24/16 14:45 141/92 11/24/16 14:30 153/91 11/24/16 14:15 131/48 General: Present: Conversant, No Apparent Distress HEENT: Present: Atraumatic, Normocephaly, Trachea midline, Pupils equal Neck: Absent: JVD, Lymphadenopathy, Left Carotid bruit, Right Carotid bruit Cardiac: Present: Reg Rate and Rhythm, Normal S1 and S2 Lungs: Present: Normal Breath Sounds Neuro: Present: Alert and responsive, Cranial nerves grossly intact, Other ( Severe bilateral lower extremity neuropathy with decreased sensation and motor function.) Abdomen: Present: Soft, Non-tender. Absent: Hepatosplenomegaly, Masses Vascular: Present: Normal capillary refill, Edema. Absent: Cyanosis Skin: Present: No rashes noted on visualized skin Consult Discharge Plan - Plan Referrals: Melissa Juarez [Primary Care Provider] - (Please follow up with your PCP... Office will call for an appointment)
[2016-11-24] MEDS: *HR* Promethazine 25 MG/ML VIAL IVP PRN (18:59)
[2016-11-24] MEDS ORDERED: predniSONE 20 MG TABLET PO ONE (19:00)
[2016-11-24] MEDS: traZODone 50 MG TABLET PO SCH (20:47)
[2016-11-24] MEDS: *HR* LORazepam 0.5 MG TABLET PO PRN (20:47)
[2016-11-24] MEDS: *HR* HYDROcodone/Acet 7.5/325 mg TABLET PO PRN (20:48)
[2016-11-25] MEDS: hydrALAZINE 25 MG TABLET PO SCH ×2 (00:14→08:49)
[2016-11-25] MEDS: *HR* Methadone 10 MG TABLET PO SCH ×2 (00:14→08:49)
[2016-11-25] MEDS ORDERED: predniSONE 20 MG TABLET PO ONE ×2 (01:00→07:00)
[2016-11-25] MEDS: *HR* Promethazine 25 MG/ML VIAL IVP PRN ×3 (01:05→13:57)
[2016-11-25] MEDS: Ipratropium/Albuterol Neb 3 ML IH SCH ×2 (03:57→07:56)
[2016-11-25] MEDS: *HR* HYDROcodone/Acet 7.5/325 mg TABLET PO PRN ×2 (04:51→11:49)
[2016-11-25] MEDS: Ondansetron ODT 4 MG TAB.RAPDIS SL PRN (04:55)
[2016-11-25 06:01] LABS: Mean Corpuscular HGB Conc 31.6 g/dL (31.6-35.5); Mean Corpuscular Hemoglobin 29.6 pg (28.0-33.3); Mean Corpuscular Volume 93.6 fL (83.0-100.0); Mean Platelet Volume 10.6 fL (9.4-12.4); Platelet Count 159 K/mcL (140-400); Red Blood Count 4.06 M/mcL (4.19-5.50); Red Cell Distribution Width 14.2 % (11.5-14.5)
[2016-11-25 06:21] LABS: Calcium 9.6 mg/dL (8.6-10.8); Potassium 5.2 mEq/L (3.5-4.5)
[2016-11-25] MEDS: *HR* Heparin 5,000 UNIT/ML VIAL SQ SCH (06:45)
[2016-11-25] MEDS: Budesonide Neb 0.5 MG/2 ML IH SCH (07:56)
[2016-11-25] MEDS: Aspirin 325 MG TABLET PO SCH (08:48)
[2016-11-25] MEDS: cloNIDine HCl 0.1 MG TABLET PO SCH (08:48)
[2016-11-25] MEDS: amLODIPine 5 MG TABLET PO SCH (08:49)
[2016-11-25] MEDS: Furosemide 40 MG TABLET PO SCH (08:49)
[2016-11-25] MEDS: Insulin LISPRO 300 UNITS/3 ML VIAL SQ SCH ×2 (08:50→13:54)
--- NOTE | 2016-11-25 08:56 | Nephrology Progress Note ---
Date of Encounter: 11/25/16 Time of Encounter: 08:35 - Assessment and Plan (1) ESRD on dialysis Current Visit: Yes Status: Acute No HD today, MWF schedule. If discharged will dialyze in [place] on Sunday. Subjective Interval history: States breathing easier. eating breakfast. at bedside. No new complaints. States going home today. Objective - Vital Signs Vital signs: Vital Signs Temp Pulse Resp BP Pulse Ox 11/25/16 07:59 98.3 F 86 18 185/81 92 L 11/25/16 07:56 18 94 L 11/25/16 04:51 98.5 F 70 20 137/61 90 L 11/25/16 03:58 18 95 11/25/16 00:00 98.3 F 70 20 179/109 94 L 11/24/16 23:09 95 11/24/16 23:06 17 95 11/24/16 20:58 98.1 F 70 20 92 L 11/24/16 16:05 97.5 F L 72 16 138/82 95 11/24/16 15:58 18 97 11/24/16 14:50 97.5 F L 16 124/80 11/24/16 14:45 141/92 11/24/16 14:30 153/91 11/24/16 14:15 131/48 11/24/16 14:00 148/76 11/24/16 13:45 146/48 11/24/16 13:30 162/75 11/24/16 13:15 170/69 11/24/16 13:00 221/91 11/24/16 12:45 217/93 11/24/16 12:30 220/88 11/24/16 12:15 159/51 11/24/16 12:00 220/95 11/24/16 11:45 216/90 11/24/16 11:30 213/80 11/24/16 11:15 97.5 F L 16 223/105 11/24/16 10:06 16 99 11/24/16 08:55 97.6 F 65 16 156/41 98 Intake and Output 11/24/16 11/25/16 11/25/16 23:59 07:59 15:59 Intake Total 500 / 500 Output Total 0 / 0 Balance 500 / 500 Intake: Oral 500 / 500 Output: Urine 0 / 0 Other: Meal Dinner Percent of Meal Consumed 100% Blood Glucose* 151 188 - General Appearance General appearance: Present: well-nourished, appears started age, frail EENT: Present: mucous membranes moist Neck: Present: no JVD Additional Comments: diminished T/O Cardiology: Present: no edema, regular rate, regular rhythm Gastrointestinal: Present: normoactive bowel sounds, no tenderness Integumentary: Present: warm and dry Neurologic: Present: alert and oriented x3 Psychiatric: Present: mood/affect appropriate, cooperative - Lab 11/25/16 05:23 11/25/16 05:23 Most recent lab results Calcium 9.6 mg/dL (8.6-10.8) 11/25/16 05:23 Phosphorus 4.1 mg/dL (2.3-4.7) 11/23/16 06:27 Magnesium 1.4 mg/dL (1.6-2.6) L 11/23/16 06:27 Consult Discharge Plan - Plan Referrals: Melissa Juarez [Primary Care Provider] - (Please follow up with your PCP... Office will call for an appointment)
[2016-11-25 12:10] VITALS: BP 172/75
--- NOTE | 2016-11-25 13:16 | Discharge Summary ---
<Tay Hayes - Last Filed: 11/25/16 13:49> Date of Encounter: 11/25/16 Time of Encounter: 13:15 - Discharge Diagnosis (1) HCAP (healthcare-associated pneumonia) Status: Acute (2) Superior mesenteric artery stenosis Status: Acute (3) COPD (chronic obstructive pulmonary disease) Status: Acute (4) ESRD (end stage renal disease) Status: Acute - Discharge Medications Prescriptions: Budesonide Neb [Pulmicort Neb] 0.5 mg IH BIDR #1 inhsol Levofloxacin 500 mg PO Q48H #3 tablet Simvastatin [Zocor] 40 mg PO HS 30 Days Home Medications: Albuterol Sulfate [Ventolin Hfa] 1 - 2 puff IH Q4-6H PRN 11/23/16 [History] Amlodipine [Norvasc] 5 - 10 mg PO DAILY 11/23/16 [History] Aspirin 325 mg PO DAILY 11/23/16 [History] Atenolol [Tenormin] 25 mg PO DAILY 11/23/16 [History] Atorvastatin Calcium [Lipitor] 20 mg PO QPM 11/23/16 [History] CloNIDine HCl [Clonidine HCl] 0.3 mg PO TID 11/23/16 [History] Docusate Sodium [Dok] 200 mg PO DAILY 11/23/16 [History] EPINEPHrine [Epipen] 0.3 mg IM ONCE PRN 11/23/16 [History] Ergocalciferol (VITAMIN D2) [Vitamin D2] 50,000 unit PO MO 11/23/16 [History] Escitalopram [Lexapro] 20 mg PO DAILY 11/23/16 [History] Furosemide [Lasix] 80 mg PO BID 11/23/16 [History] Hydralazine HCl 100 mg PO TID 11/23/16 [History] Insulin ASPART [NovoLOG] 2 - 10 unit SQ TID PRN 11/23/16 [History] Insulin Glargine [Lantus] 25 unit SQ HS 11/23/16 [History] Isosorbide MONOnitrate (24 HR) [Imdur] 60 mg PO DAILY 11/23/16 [History] LORazepam [Ativan] 1 mg PO BID PRN 11/23/16 [History] Lanthanum Carbonate [Fosrenol] 1,000 mg PO TIDWM 11/23/16 [History] Lisinopril [Zestril] 10 mg PO BID 11/23/16 [History] Lubiprostone [Amitiza] 24 mcg PO DAILY 11/23/16 [History] Methadone 10 mg PO Q8HR 11/23/16 [History] Nitroglycerin [Nitrostat] 0.4 mg SL Q5M PRN 11/23/16 [History] Omeprazole 20 mg PO DAILY 11/23/16 [History] Ondansetron ODT [Zofran ODT] 4 mg SL Q4H PRN 11/23/16 [History] Renal Vitamin [Renal Caps Softgel] 1 mg PO DAILY 11/23/16 [History] Tamsulosin HCl [Flomax] 0.4 - 0.8 mg PO DAILY 11/23/16 [History] Tizanidine HCl [Zanaflex] 4 mg PO TID PRN 11/23/16 [History] Trazodone HCl 100 mg PO HS 11/23/16 [History] Budesonide Neb [Pulmicort Neb] 0.5 mg IH BIDR #1 inhsol 11/25/16 [Rx] Levofloxacin 500 mg PO Q48H #3 tablet 11/25/16 [Rx] Simvastatin [Zocor] 40 mg PO HS 30 Days 11/25/16 [Rx] Allergies/Adverse Reactions: Allergies BEE VENOM Allergy (Uncoded 11/23/16 09:18) Difficulty Swallowing BARIUM IODIDE Adverse Reaction (Uncoded 11/23/16 09:18) Vomiting IVP DYE Adverse Reaction (Uncoded 11/23/16 09:18) Vomiting Procedures/tests Complete & Pending: Procedures Performed prior 72 hours Category Date Time Status CT abd pelvis wo no iv no oral [CT] Routine Cat Scan 11/23/16 08:[address] angio abdomen [CT] Routine Cat Scan 11/25/16 08:[address] chest wo con [CT] Routine Cat Scan 11/23/16 08:30 Completed Date of admission: 11/23/16 02:46 Primary care physician: Melissa Juarez Consults: 11/23/16 01:53 Consult to Occupational Therapy [CONS] Routine Comment: Evaluate, develop and implement POC Consult to Physical Therapy [CONS] Routine Comment: Evaluate, develop and implement POC Consult to Sewing Machines Salesperson [CONS] Routine Reason for SW Consult: may benefit home health vs. rehab upon discharge.Pt. has op hd in [place]/with dr. roper. pt also has home o2 11/23/16 01:55 Consult to Nephrology [CONS] Routine Consulting Provider: [facility] Phil ROPER Reason for Consult: established patient, MWF dialysis Call Completed: No 11/24/16 09:45 Consult to Dialysis [CONS] ONCE 11/24/16 16:00 Consult to Vascular Surgery [CONS] Routine Consulting Provider: Vascular Surgery Dinorah Reason for Consult: Concern for abdominal pain due to SMA Call Completed: No Discharging clinician: Tay Hayes Anticipated date of discharge: 11/25/16 - Patient Status Disposition: Home Health Service Condition: Good Functional capacity at discharge: uses cane/walker Overall status at discharge: patient is progressing back to baseline - Discharge Instructions Instructions: Simvastatin (By mouth), Levofloxacin (By mouth), Budesonide (By breathing) Follow Up With: Tay Juárez MD [Partnered Physician] - (in 2 weeks.) Melissa Juarez [Primary Care Provider] - (Please follow up with your PCP... Office will call for an appointment) Additional Instructions: Please follow up with your PCP, telegraphic typewriter mechanic, and Dr. Juárez ( vascular Surgery ). Take medications as prescribed. Call your PCP or return to the E if you have worsening shortness of breath or fever > 102 F. - Diet and Activity Activity: as per physical therapy Diet: diabetic diet, other (renal) Hospital course: Mr. Prater is a 56 year old male who was transferred to [facility] from an outside facility as he has ESRD and requires HD. He would have a CT of the chest revealing multifocal pneumonia. He was treated with Vancomycin and Zosyn. We will discharge him with Levofloxacin. Blood and sputum cultures show no growth to date. Additionally he has a history of chronic abdominal pain. 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 CTA of the abdomen was perfromed which demonstrated approximately 50% stemosis of the Celiac and SMA arteries. I discussed the case with Vascular Surgery Dr. Arenas. No intervention needed at this time. He will follow up with him in 2 weeks. Today the patient states he is feeling much better. He states that he feels that he is at his baseline. He has been afebrile since admission. We will discharge him today with home health. - Time Spent with Patient Total time spent providing and/or coordinating discharge services: Greater than 30 minutes (Approximately 42 minutes spent discharging this patient.) - Constitutional Vitals: Temp Pulse Resp BP Pulse Ox 98.4 F 68 18 172/75 100 11/25/16 12:09 11/25/16 12:09 11/25/16 12:09 11/25/16 12:09 11/25/16 12:09 General appearance: Present: cachectic, cooperative, disheveled, A&O X 3, pleasant, no acute distress, answers questions appropriately - Head Head exam: Present: atraumatic, normal inspection, normocephalic - Eye Eye exam: Present: PERRL, conjuntiva pink, sclera anicteric Pupils: Present: PERRL - Neck Neck exam general surgery: Present: supple, trachea midline. Absent: lymphadenopathy - Respiratory Respiratory exam: Present: rhonchi (mild), wheezes (minimal). Absent: accessory muscle use, rales - Cardiovascular Cardiovascular exam: Present: RRR, +S1, +S2. Absent: diastolic murmur, gallop, rubs, systolic murmur - GI/Abdominal GI/Abdominal exam: Present: normal bowel sounds, soft, tenderness (mild diffuse) , no peritoneal signs. Absent: distended - Extremities Exam Extremities exam: Present: warm, radial pulses palpable and symetrical. Absent : calf tenderness, cyanotic, pedal edema - Skin Skin exam: Present: dry, intact <Jevon Garcia H - Last Filed: 11/25/16 14:44> Date of Encounter: 11/25/16 Procedures/tests Complete & Pending: Procedures Performed prior 72 hours Category Date Time Status CT abd pelvis wo no iv no oral [CT] Routine Cat Scan 11/23/16 08:[address] angio abdomen [CT] Routine Cat Scan 11/25/16 08:[address] chest wo con [CT] Routine Cat Scan 11/23/16 08:30 Completed Date of admission: 11/23/16 02:46 Primary care physician: Melissa Juarez Consults: 11/23/16 01:53 Consult to Occupational Therapy [CONS] Routine Comment: Evaluate, develop and implement POC Consult to Physical Therapy [CONS] Routine Comment: Evaluate, develop and implement POC Consult to Sewing Machines Salesperson [CONS] Routine Reason for SW Consult: may benefit home health vs. rehab upon discharge.Pt. has op hd in [place]/with dr. roper. pt also has home o2 11/23/16 01:55 Consult to Nephrology [CONS] Routine Consulting Provider: [facility] lst LOBO Reason for Consult: established patient, MWF dialysis Call Completed: No 11/24/16 09:45 Consult to Dialysis [CONS] ONCE 11/24/16 16:00 Consult to Vascular Surgery [CONS] Routine Consulting Provider: Vascular Surgery Dinorah Reason for Consult: Concern for abdominal pain due to SMA Call Completed: No Hospital course: Mr. Prater is a 56 year old male - Time Spent with Patient Total time spent providing and/or coordinating discharge services: - Constitutional Vitals: Temp Pulse Resp BP Pulse Ox 98.4 F 68 18 172/75 100 11/25/16 12:09 11/25/16 12:09 11/25/16 12:09 11/25/16 12:09 11/25/16 12:09 - Attending Attestation complete 3 more doses of levaquin. Follow up with vascular surgery within 2 weeks I examined this patient and my medical decision-making was reviewed with the YARN BLEACHING MACHINE OPERATOR/PA/Advanced Practice Nurse/Resident Physician. I agree with the documented findings, disposition and treatment plan as described except to the extent set forth below.
--- NOTE | 2016-11-25 13:18 | Vascular/[facility] Progress Note ---
Date of Encounter: 11/25/16 Time of Encounter: 14:30 - Assessment and plan (1) Mesenteric artery stenosis Current Visit: Yes Status: Chronic The patients CT scan was reviewed. He has a 50% Celiac trunk stenosis and a 50 % SMA stenosis. This degree of stenosis is not likely to result in chronic mesenteric ischemia. The patient will continue with daily aspirin, antihypertensives and lipid lowering agents. He will continue with a regular diet. Renal nutritional supllements are recommended. He will follow-up in vascular clinic in 1-2 weeks. Should he continue wot experieinc nausea after eating, further evaluation with Gastroenterology may be required. (2) Benign hypertension with ESRD (end-stage renal disease) Current Visit: Yes Status: Chronic The patient was counseled regarding atherosclerotic risk factor reduction. (3) ESRD on dialysis Current Visit: Yes Status: Chronic (4) COPD (chronic obstructive pulmonary disease) Current Visit: Yes Status: Chronic Qualifiers: COPD type: unspecified COPD Qualified Code(s): J44.9 - Chronic obstructive pulmonary disease, unspecified (5) Hypertension Current Visit: Yes Status: Chronic Qualifiers: Hypertension type: essential hypertension Qualified Code(s): I10 - Essential (primary) hypertension (6) Insulin dependent diabetes mellitus Current Visit: Yes Status: Chronic (7) Abdominal pain Current Visit: Yes Status: Chronic Qualifiers: Abdominal location: unspecified location Qualified Code(s): R10.9 - Unspecified abdominal pain - Subjective Interval history: The patient reports that he tolerated his lunch without any pain or nausea. He denies chest pain or shortness of breath. Vital Signs, Last 4 Hours Temp Pulse Resp BP Pulse Ox 11/25/16 12:09 98.4 F 68 18 172/75 100 - Physical Examination General: Present: Conversant, No Apparent Distress HEENT: Present: Atraumatic Cardiac: Present: Reg Rate and Rhythm Lungs: Present: Normal Breath Sounds Neuro: Present: Alert and responsive, Other (neurologic exam at baseline) Vascular: Present: Normal capillary refill. Absent: Cyanosis, Edema Abdomen: Present: Soft, Non-tender. Absent: Masses Skin: Present: No rashes noted on visualized skin Results 11/25/16 05:23 11/25/16 05:23 Lab Results, Last 24 hours 11/25/16 11/25/16 05:23 05:23 WBC 4.2 L Hgb 12.0 L Hct 38.0 Plt Count 159 Sodium 137 Potassium 5.2 H Chloride 97 L Carbon Dioxide 24 BUN 42 H Creatinine 2.69 H Glucose 131 H Calcium 9.6 - Imaging / Other Tests CT/CTA: report reviewed, image reviewed Consult Discharge Plan - Plan Instructions: Simvastatin (By mouth), Levofloxacin (By mouth), Budesonide (By breathing) Additional Instructions: Please follow up with your PCP, mobile paramedical examiner, and Dr. Juárez ( vascular Surgery ). Take medications as prescribed. Call your PCP or return to the E if you have worsening shortness of breath or fever > 102 F. Referrals: Melissa Juarez [Primary Care Provider] - (Please follow up with your PCP... Office will call for an appointment) Tay Juárez MD [Partnered Physician] - (in 2 weeks.) Prescriptions: Budesonide Neb [Pulmicort Neb] 0.5 mg IH BIDR #1 inhsol Levofloxacin 500 mg PO Q48H #3 tablet Simvastatin [Zocor] 40 mg PO HS 30 Days
--- NOTE | 2016-11-25 13:58 | Physician Discharge Referral ---
<Tay Hayes - Last Filed: 11/25/16 13:57> Home Health/Hosp Referral Info Transfer to: Home Health Provider in Charge Post Discharge: PCP - Diagnosis (1) HCAP (healthcare-associated pneumonia) Status: Acute (2) Superior mesenteric artery stenosis Status: Acute (3) COPD (chronic obstructive pulmonary disease) Status: Acute (4) ESRD (end stage renal disease) Status: Acute - Respiratory Orders Oxygen / L per min (3L NC) Smoking Cessation: Smoking cessation has been advised. For more information, call the [place] Tobacco Quit Line at 5-207-WDIV-NOW. - Diet/Nutrition Diet/Nutrition Orders: Renal - Activity Activity Orders: Ambulate (as per PT/OT) - Services Needed Following services are medically necessary services: Nursing, Home Health Aide, Physical Therapy, Occupational Therapy - Transfer Medications Prescriptions: Budesonide Neb [Pulmicort Neb] 0.5 mg IH BIDR #1 inhsol Levofloxacin 500 mg PO Q48H #3 tablet Simvastatin [Zocor] 40 mg PO HS 30 Days Home Medications: Albuterol Sulfate [Ventolin Hfa] 1 - 2 puff IH Q4-6H PRN 11/23/16 [History] Amlodipine [Norvasc] 5 - 10 mg PO DAILY 11/23/16 [History] Aspirin 325 mg PO DAILY 11/23/16 [History] Atenolol [Tenormin] 25 mg PO DAILY 11/23/16 [History] Atorvastatin Calcium [Lipitor] 20 mg PO QPM 11/23/16 [History] CloNIDine HCl [Clonidine HCl] 0.3 mg PO TID 11/23/16 [History] Docusate Sodium [Dok] 200 mg PO DAILY 11/23/16 [History] EPINEPHrine [Epipen] 0.3 mg IM ONCE PRN 11/23/16 [History] Ergocalciferol (VITAMIN D2) [Vitamin D2] 50,000 unit PO MO 11/23/16 [History] Escitalopram [Lexapro] 20 mg PO DAILY 11/23/16 [History] Furosemide [Lasix] 80 mg PO BID 11/23/16 [History] Hydralazine HCl 100 mg PO TID 11/23/16 [History] Insulin ASPART [NovoLOG] 2 - 10 unit SQ TID PRN 11/23/16 [History] Insulin Glargine [Lantus] 25 unit SQ HS 11/23/16 [History] Isosorbide MONOnitrate (24 HR) [Imdur] 60 mg PO DAILY 11/23/16 [History] LORazepam [Ativan] 1 mg PO BID PRN 11/23/16 [History] Lanthanum Carbonate [Fosrenol] 1,000 mg PO TIDWM 11/23/16 [History] Lisinopril [Zestril] 10 mg PO BID 11/23/16 [History] Lubiprostone [Amitiza] 24 mcg PO DAILY 11/23/16 [History] Methadone 10 mg PO Q8HR 11/23/16 [History] Nitroglycerin [Nitrostat] 0.4 mg SL Q5M PRN 11/23/16 [History] Omeprazole 20 mg PO DAILY 11/23/16 [History] Ondansetron ODT [Zofran ODT] 4 mg SL Q4H PRN 11/23/16 [History] Renal Vitamin [Renal Caps Softgel] 1 mg PO DAILY 11/23/16 [History] Tamsulosin HCl [Flomax] 0.4 - 0.8 mg PO DAILY 11/23/16 [History] Tizanidine HCl [Zanaflex] 4 mg PO TID PRN 11/23/16 [History] Trazodone HCl 100 mg PO HS 11/23/16 [History] Budesonide Neb [Pulmicort Neb] 0.5 mg IH BIDR #1 inhsol 11/25/16 [Rx] Levofloxacin 500 mg PO Q48H #3 tablet 11/25/16 [Rx] Simvastatin [Zocor] 40 mg PO HS 30 Days 11/25/16 [Rx] Allergies/Adverse Reactions: Allergies BEE VENOM Allergy (Uncoded 11/23/16 09:18) Difficulty Swallowing BARIUM IODIDE Adverse Reaction (Uncoded 11/23/16 09:18) Vomiting IVP DYE Adverse Reaction (Uncoded 11/23/16 09:18) Vomiting Certification: Further, I certify that my clinical findings support that this patient is homebound (i.e. absences from home require considerable and taxing effort and are for medical reasons or synagogue services or infrequently or short duration when for other reasons) because: Homebound Reason: Patient requires assistance of a person or device to safely leave home, Severity of cardiac or pulmonary status limits activity tolerance Attestation: My signature below is to certify that this patient is under my care and that I, or nurse practitioner, or a physician's social and human services assistant working with me, has a face-to -face encounter with this patient. <Jevon Garcia - Last Filed: 11/25/16 14:44> - Respiratory Orders Smoking Cessation: Smoking cessation has been advised. For more information, call the [place] Tobacco Quit Line at 5-738-NZPD-NOW. Certification: Further, I certify that my clinical findings support that this patient is homebound (i.e. absences from home require considerable and taxing effort and are for medical reasons or synagogue services or infrequently or short duration when for other reasons) because: Attestation: My signature below is to certify that this patient is under my care and that I, or nurse practitioner, or a physician's social and human services assistant working with me, has a face-to -face encounter with this patient. complete 3 more doses of levaquin. Follow up with vascular surgery within 2 weeks I examined this patient and my medical decision-making was reviewed with the TODDLER CAREGIVER/PA/Advanced Practice Nurse/Resident Physician. I agree with the documented findings, disposition and treatment plan as described except to the extent set forth below.
[2016-11-25] MEDS ORDERED: Aminoglycoside Consult 1 EACH MC ONE (15:05)
== END 2016-11-25 15:06 | disposition home health service (06) | DRG 190 ==
LOC: 2ANU → SUATTDRO 11-23 02:46
PROVIDERS: ADMIT Internal Medicine; ATTEND Internal Medicine

== ENCOUNTER 2017-04-25 19:21 | Inpatient (IN) ==
[2017-04-25] MEDS ORDERED: Naloxone 0.4 MG/ML INJ IVP PRN (23:14)
[2017-04-25] MEDS ORDERED: Nitroglycerin 0.4 MG TAB.SUBL SL PRN (23:16)
--- NOTE | 2017-04-25 23:37 | Internal Med History&Physical ---
Date of Encounter: 04/25/17 Time of Encounter: 23:37 Assessment and Plan (1) Acute and chronic respiratory failure Current visit: Yes Status: Acute he reportedly had a pulse ox reading of 71% on 3Lof oxygen, with diagnostic imaging reporting mucus plugging of the left main endobronchial stem, images reviewed on PACS, he is currently doing well on oxygen via NC, we will get RT to chest PT and consider pulmonology input for bronch Qualifiers: Respiratory failure complication: hypoxia Qualified Code(s): J96.21 - Acute and chronic respiratory failure with hypoxia (2) ESRD on dialysis Current visit: Yes Status: Chronic hx of HD on [facility] [place], had HD today, we will get nephrology to weigh in regarding continuing with his HD schedule whilst on admission (3) Hypertension Current visit: Yes Status: Chronic hypertensive on presentation, we will continue home antihypertensive regimen whilst monitoring BP Qualifiers: Hypertension type: essential hypertension Qualified Code(s): I10 - Essential (primary) hypertension (4) Abdominal pain Current visit: Yes Status: Chronic per patient this is chronic and is pain medications for this, we will continue his home methadone Qualifiers: Abdominal location: upper abdomen, unspecified Qualified Code(s): R10.10 - Upper abdominal pain, unspecified (5) Insulin dependent diabetes mellitus Current visit: Yes Status: Chronic hx of DM type 2 on insulin regimen, most recent A1c was 4.8% in 11/2016, we will hold insulin regimen with FS Q6H whilst NPO, recheck A1c (6) COPD (chronic obstructive pulmonary disease) Current visit: Yes Status: Chronic will do PRN nebs Qualifiers: COPD type: emphysema Emphysema type: centrilobular Qualified Code(s): J43.2 - Centrilobular emphysema Internal Medicine - H&P: HPI Chief complaint: low pulse ox reading and minimal responsiveness Admitted From: Hospital to Hospital Transfer Plans for Post Hospital Care: Home History of present illness: Mr. Prater is a 57 year old male with ESRD who undergoes dialyzes in [facility], last dialysis was today. He was noted to be diaphoretic and minimally responsive after dialysis with a pulse ox reading of 71% on 3L/min of oxygen. Further workup with diagnostic imaging was suggestive of mucus plugging of the left mainstem so he was transferred here for further intervention. He denies prior history of this presentation. He currently denies productve cpugh, fever, chills, nausea or vomiting. Past Med Surg Social Fam HX - Past Medical History Medical history: arthritis, CHF, COPD, coronary artery disease, diabetes, dialysis, GERD, hyperlipidemia, hypertension, osteoporosis, peripheral artery disease, renal disease, other Psychiatric history: anxiety, depression, other - Past Surgical History Surgical History: angioplasty/stent, appendectomy, arthroscopy, cataract, cholecystectomy, knee replacement, orthopedic, other, vascular surgery, other - Social History Smoking Status: Never smoker Smokeless Tobacco Status: No Alcohol use: unknown Drug use: unknown - Family History Father Adopted: No Age: 56 Family Member Ethnicity: Non- Living Status: Age at : 56 Cause of : cancer Hx Family Cardiac Disorders: Yes Hx Family Respiratory Disorders: No Hx Family Cancer: No Internal Medicine - H&P: Meds Albuterol Sulfate [Ventolin Hfa] 1 - 2 puff IH Q4-6H PRN 11/23/16 [History] Aspirin 325 mg PO DAILY 11/23/16 [History] Atenolol [Tenormin] 25 mg PO DAILY 11/23/16 [History] Atorvastatin Calcium [Lipitor] 20 mg PO QPM 11/23/16 [History] Docusate Sodium [Dok] 200 mg PO DAILY 11/23/16 [History] EPINEPHrine [Epipen] 0.3 mg IM ONCE PRN 11/23/16 [History] Ergocalciferol (VITAMIN D2) [Vitamin D2] 50,000 unit PO MO 11/23/16 [History] Escitalopram [Lexapro] 20 mg PO DAILY 11/23/16 [History] Furosemide [Lasix] 80 mg PO BID 11/23/16 [History] Hydralazine HCl 100 mg PO TID 11/23/16 [History] Insulin ASPART [NovoLOG] 2 - 10 unit SQ TID PRN 11/23/16 [History] Insulin Glargine [Lantus] 25 unit SQ HS 11/23/16 [History] Isosorbide MONOnitrate (24 HR) [Imdur] 60 mg PO DAILY 11/23/16 [History] LORazepam [Ativan] 1 mg PO BID PRN 11/23/16 [History] Lisinopril [Zestril] 10 mg PO DAILY 11/23/16 [History] Lubiprostone [Amitiza] 24 mcg PO DAILY 11/23/16 [History] Methadone 10 mg PO Q8HR 11/23/16 [History] Nitroglycerin [Nitrostat] 0.4 mg SL Q5M PRN 11/23/16 [History] Omeprazole 20 mg PO DAILY 11/23/16 [History] Ondansetron ODT [Zofran ODT] 4 mg SL Q4H PRN 11/23/16 [History] Renal Vitamin [Renal Caps Softgel] 1 mg PO DAILY 11/23/16 [History] Tamsulosin HCl [Flomax] 0.4 mg PO BID 11/23/16 [History] Tizanidine HCl [Zanaflex] 4 mg PO TID PRN 11/23/16 [History] Trazodone HCl 100 mg PO HS 11/23/16 [History] amLODIPine [Norvasc] 10 mg PO BID 11/23/16 [History] cloNIDine HCl [Clonidine HCl] 0.3 mg PO TID 11/23/16 [History] Budesonide Neb [Pulmicort Neb] 0.5 mg IH BIDR #1 inhsol 11/25/16 [Rx] Metoclopramide HCl 5 mg PO HS 04/25/17 [History] Allergies BEE VENOM Allergy (Uncoded 11/23/16 09:18) Difficulty Swallowing BARIUM IODIDE Adverse Reaction (Uncoded 11/23/16 09:18) Vomiting IVP DYE Adverse Reaction (Uncoded 11/23/16 09:18) Vomiting All Systems PM: A 10-system review of systems was performed and is negative for pertinent findings except as documented above in the HPI. - Constitutional Vitals: Pulse Resp BP Pulse Ox 72 14 177/82 95 04/25/17 21:23 04/25/17 21:23 04/25/17 21:23 04/25/17 21:23 GENERAL: Adult male lying in bed, cachectic looking, Alert, licking his lower lips, heavily bearded HEENT: NC/AT, EOMI, PERRLA, anicteric sclera, normal conjunctiva, supple, clear nares, moist mucous membranes, RESP: Lungs have transmitted sounds, no wheeze heard but had few basal crackles CARDIO: Normal hearts sounds; S1 and 2, RRR with no murmurs, no JVD, no ankle edema GI: Soft, full, no tenderness, no organomegaly felt, normal bowel sounds heard MUSCULOSKELETAL: grossly normal movements bilaterally, no deformities noted, LUE AVF with bruit and thrill, no pedal edema NEUROLOGIC: CN 2-12 intact grossly. No gross motor/sensory deficit appreciated, SKIN: bilateral upper extremity ecchymoses, desquamating skin on the lower extremities bilaterally Internal Med - H&P Results - Diagnostic Studies Chest x-ray Status: image reviewed by me CT scan - chest Status: image reviewed by me (reviewed on PACS)
[2017-04-26] MEDS: *HR* Methadone 10 MG TABLET PO SCH ×4 (00:18→23:57)
[2017-04-26] MEDS: tiZANidine 4 MG TABLET PO PRN (00:18)
[2017-04-26] MEDS: *HR* Heparin 5,000 UNIT/ML VIAL SQ SCH ×3 (00:18→20:47)
[2017-04-26] MEDS: *HR* LORazepam 1 MG TABLET PO PRN (01:35)
[2017-04-26] MEDS ORDERED: Ipratropium/Albuterol Neb 3 ML IH ONE (01:37)
[2017-04-26] MEDS ORDERED: Albuterol 2.5 MG/3 ML NEBULIZER IH PRN (01:37)
[2017-04-26] MEDS ORDERED: traZODone 50 MG TABLET PO STA (03:02)
[2017-04-26] MEDS: traZODone 50 MG TABLET PO SCH ×2 (03:11→20:47)
[2017-04-26] MEDS ORDERED: *HR* Dextrose 50 % in Water (Syg) 50 ML SYRINGE IVP PRN (04:21)
[2017-04-26] MEDS ORDERED: D5% in Water 1,000 ML IVC PRN (04:21)
[2017-04-26] MEDS ORDERED: Dextrose Gel 15 GM PO PRN ×2 (04:21)
[2017-04-26 07:08] LABS: Calcium 8.6 mg/dL (8.6-10.8); Magnesium 1.6 mg/dL (1.6-2.6); Phosphorous 4.9 mg/dL (2.3-4.7)
[2017-04-26 07:55] LABS: Hemoglobin 14.3 g/dL (12.9-16.9); Immature Granulocytes % 0.3 % (0-4); Lymphocytes # 0.2 K/mcL (0.6-4.6); Lymphocytes % 2.4 %; Mean Corpuscular HGB Conc 31.8 g/dL (31.6-35.5); Mean Corpuscular Volume 100.7 fL (83.0-100.0); Mean Platelet Volume 10.4 fL (9.4-12.4); Monocytes # 0.3 K/mcL (0.0-1.3); Monocytes % 2.7 %; Neutrophils # 8.6 K/mcL (1.6-8.9); Platelet Count 118 K/mcL (140-400); Red Blood Count 4.47 M/mcL (4.19-5.50); Red Cell Distribution Width 14.9 % (11.5-14.5); Segmented Neutrophils % 94.6 %
[2017-04-26 08:07] LABS: Calcium 8.5 mg/dL (8.6-10.8); Magnesium 1.8 mg/dL (1.6-2.6); Phosphorous 5.1 mg/dL (2.3-4.7); Potassium 4.2 mEq/L (3.5-4.5)
[2017-04-26] MEDS: Renal Vitamin 1 MG CAPSULE PO SCH (08:10)
[2017-04-26] MEDS: Isosorbide MONOnitrate (24 HR) 60 MG TAB.ER.24H PO SCH (08:10)
[2017-04-26] MEDS: Aspirin 325 MG TABLET PO SCH (08:10)
[2017-04-26] MEDS: amLODIPine 5 MG TABLET PO SCH ×2 (08:10→20:47)
[2017-04-26] MEDS: hydrALAZINE 25 MG TABLET PO SCH ×3 (08:11→20:46)
[2017-04-26] MEDS: cloNIDine HCl 0.1 MG TABLET PO SCH ×3 (08:12→20:47)
[2017-04-26] MEDS: (Lubiprostone [Amitiza] 24 MCG) PO SCH (08:13)
--- NOTE | 2017-04-26 09:22 | Nephrology Consult Note ---
Date of Encounter: 04/26/17 Time of Encounter: 08:40 Assessment and Plan (1) ESRD on dialysis Current Visit: Yes Status: Chronic Acute on chronic respiratory failure. ESRD. No HD today, will do tomorrow, keeping MWF schedule. History of Present Illness - Reason for Consult end stage renal disease - History of Present Illness Mr. Prater is a 57 year old male with ESRD, who dialyzes in [place] on MWF. Last dialysis yesterday. Other PMH-arthritis, CHF, COPD, coronary artery disease , diabetes, dialysis, GERD, hyperlipidemia, hypertension, osteoporosis, peripheral artery disease. 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 It was noted by staff following HD that Mr. Prater was minimally responsive, diaphoretic, pulse ox 71% on 3 liters O2. CXR at [facility] suggestive of mucous plugging and transferred to [facility] for further intervention. On arrival he had improved, RT to do chest PT. This morning he is alert, talking, appropriate. More so than noted during regular weekly diaysis rounds. He deinies any SOB or chest pain. Past Med Surg Social Fam HX - Past Medical History Medical history: arthritis, CHF, COPD, coronary artery disease, diabetes, dialysis, GERD, hyperlipidemia, hypertension, osteoporosis, peripheral artery disease, renal disease, other Psychiatric history: anxiety, depression, other - Past Surgical History Surgical History: angioplasty/stent, appendectomy, arthroscopy, cataract, cholecystectomy, knee replacement, orthopedic, other, vascular surgery, other - Social History Smoking Status: Never smoker Smokeless Tobacco Status: No Alcohol use: unknown Drug use: unknown - Family History Father Adopted: No Age: 56 Family Member Ethnicity: Non- Living Status: Age at : 56 Cause of : cancer Hx Family Cardiac Disorders: Yes Hx Family Respiratory Disorders: No Hx Family Cancer: No Medications and Allergies Albuterol Sulfate [Ventolin Hfa] 1 - 2 puff IH Q4-6H PRN 11/23/16 [History] Aspirin 325 mg PO DAILY 11/23/16 [History] Atenolol [Tenormin] 25 mg PO DAILY 11/23/16 [History] Atorvastatin Calcium [Lipitor] 20 mg PO QPM 11/23/16 [History] Docusate Sodium [Dok] 200 mg PO DAILY 11/23/16 [History] EPINEPHrine [Epipen] 0.3 mg IM ONCE PRN 11/23/16 [History] Ergocalciferol (VITAMIN D2) [Vitamin D2] 50,000 unit PO MO 11/23/16 [History] Escitalopram [Lexapro] 20 mg PO DAILY 11/23/16 [History] Furosemide [Lasix] 80 mg PO BID 11/23/16 [History] Hydralazine HCl 100 mg PO TID 11/23/16 [History] Insulin ASPART [NovoLOG] 2 - 10 unit SQ TID PRN 11/23/16 [History] Insulin Glargine [Lantus] 25 unit SQ HS 11/23/16 [History] Isosorbide MONOnitrate (24 HR) [Imdur] 60 mg PO DAILY 11/23/16 [History] LORazepam [Ativan] 1 mg PO BID PRN 11/23/16 [History] Lisinopril [Zestril] 10 mg PO DAILY 11/23/16 [History] Lubiprostone [Amitiza] 24 mcg PO DAILY 11/23/16 [History] Methadone 10 mg PO Q8HR 11/23/16 [History] Nitroglycerin [Nitrostat] 0.4 mg SL Q5M PRN 11/23/16 [History] Omeprazole 20 mg PO DAILY 11/23/16 [History] Ondansetron ODT [Zofran ODT] 4 mg SL Q4H PRN 11/23/16 [History] Renal Vitamin [Renal Caps Softgel] 1 mg PO DAILY 11/23/16 [History] Tamsulosin HCl [Flomax] 0.4 mg PO BID 11/23/16 [History] Tizanidine HCl [Zanaflex] 4 mg PO TID PRN 11/23/16 [History] Trazodone HCl 100 mg PO HS 11/23/16 [History] amLODIPine [Norvasc] 10 mg PO BID 11/23/16 [History] cloNIDine HCl [Clonidine HCl] 0.3 mg PO TID 11/23/16 [History] Budesonide Neb [Pulmicort Neb] 0.5 mg IH BIDR #1 inhsol 11/25/16 [Rx] Metoclopramide HCl 5 mg PO HS 04/25/17 [History] Allergies BEE VENOM Allergy (Uncoded 11/23/16 09:18) Difficulty Swallowing BARIUM IODIDE Adverse Reaction (Uncoded 11/23/16 09:18) Vomiting IVP DYE Adverse Reaction (Uncoded 11/23/16 09:18) Vomiting Review of Systems All Systems: reviewed and no additional remarkable complaints except as stated Exam - Vital Signs Vital signs: Initial Vital Signs Pulse Resp BP Pulse Ox 72 14 177/82 95 04/25/17 21:23 04/25/17 21:23 04/25/17 21:23 04/25/17 21:23 Vital Signs - Last 8 Hours Temp Pulse Resp BP Pulse Ox 04/26/17 06:50 98.4 F 68 18 173/84 100 04/26/17 03:57 98.1 F 72 17 163/59 100 04/26/17 01:47 18 92 Intake and Output 04/25/17 04/26/17 04/26/17 23:59 07:59 15:59 Intake Total 0 / 0 0 / 0 Output Total 0 / 0 0 / 0 Balance 0 / 0 0 / 0 Intake: Oral 0 / 0 0 / 0 Output: Urine 0 / 0 0 / 0 Other: Weight 60.2 kg 60.2 kg Blood Glucose* 81 Patient Weight 04/26/17 23:59 Weight 60.2 kg - General Appearance General appearance: cachectic, chronically ill, frail EENT: mucous membranes moist Neck: no JVD Respiratory: clear Cardiology: no edema, regular rate, regular rhythm - Dialysis Access Dialysis Vascular Access: Arteriovenous Fistula thrill: Yes bruit: Yes Gastrointestinal: normoactive bowel sounds, no tenderness, no guarding Integumentary: warm and dry Neurologic: alert and oriented x3 Psychiatric: mood/affect appropriate, cooperative Results - Lab Results 04/26/17 07:46 04/26/17 07:46 Most recent lab results Calcium 8.5 mg/dL (8.6-10.8) L 04/26/17 07:46 Phosphorus 5.1 mg/dL (2.3-4.7) H 04/26/17 07:46 Magnesium 1.8 mg/dL (1.6-2.6) 04/26/17 07:46 Consult Discharge Plan - Plan Referrals: Unassigned,Provider [Primary Care Provider] -
--- NOTE | 2017-04-26 09:59 | Pulmonology Consult Note ---
Date of Encounter: 04/26/17 Time of Encounter: 09:00 Assessment and Plan (1) Hypoxemia Current Visit: Yes Status: Acute Hypoxemia in this particular individual is likely due to mucus obstruction of airway. The current film is not available for review and I have ordered another film. Furthermore, the patient will be placed on bronchodilator therapy and chest percussion to enhance pulmonary hygiene. He may also benefit from use of a flutter valve. Agents overall appearance, is very weak poor cough and voice alteration, I wonder if he has an underlying neuromuscular disorder. Nonetheless, bronchoscopy may be necessary but I believe the patient should have a trial of aggressive pulmonary hygiene before this undertaking. Code(s): R09.02 - Hypoxemia SNOMED Code(s): 624494825 History of Present Illness Consult date: 04/26/17 Chief complaint: Hypoxemia History of present illness: Is extremely frail and cachectic 57-year-old male with end-stage renal disease among other multiple comorbidities was admitted to the hospital given documented hypoxemia for impaired cough and reported radiographic demonstration of atelectasis in the left chest (presumably related to mucus obstruction). At this time, the patient denies any specific complaints. Past Med Surg Social Fam HX - Past Medical History Medical history: arthritis, CHF, COPD, coronary artery disease, diabetes, dialysis, GERD, hyperlipidemia, hypertension, osteoporosis, peripheral artery disease, renal disease, other Psychiatric history: anxiety, depression, other - Past Surgical History Surgical History: angioplasty/stent, appendectomy, arthroscopy, cataract, cholecystectomy, knee replacement, orthopedic, other, vascular surgery, other - Social History Smoking Status: Never smoker Smokeless Tobacco Status: No Alcohol use: unknown Drug use: unknown - Family History Father Adopted: No Age: 56 Family Member Ethnicity: Non- Living Status: Age at : 56 Cause of : cancer Hx Family Cardiac Disorders: Yes Hx Family Respiratory Disorders: No Hx Family Cancer: No Medications and Allergies Albuterol Sulfate [Ventolin Hfa] 1 - 2 puff IH Q4-6H PRN 11/23/16 [History] Aspirin 325 mg PO DAILY 11/23/16 [History] Atenolol [Tenormin] 25 mg PO DAILY 11/23/16 [History] Atorvastatin Calcium [Lipitor] 20 mg PO QPM 11/23/16 [History] Docusate Sodium [Dok] 200 mg PO DAILY 11/23/16 [History] EPINEPHrine [Epipen] 0.3 mg IM ONCE PRN 11/23/16 [History] Ergocalciferol (VITAMIN D2) [Vitamin D2] 50,000 unit PO MO 11/23/16 [History] Escitalopram [Lexapro] 40 mg PO DAILY 11/23/16 [History] Furosemide [Lasix] 80 mg PO BID 11/23/16 [History] Hydralazine HCl 100 mg PO TID 11/23/16 [History] Insulin ASPART [NovoLOG] 2 - 10 unit SQ TID PRN 11/23/16 [History] Insulin Glargine [Lantus] 25 unit SQ HS 11/23/16 [History] Isosorbide MONOnitrate (24 HR) [Imdur] 60 mg PO DAILY 11/23/16 [History] LORazepam [Ativan] 1 mg PO BID PRN 11/23/16 [History] Lisinopril [Zestril] 10 mg PO BID 11/23/16 [History] Lubiprostone [Amitiza] 24 mcg PO DAILY 11/23/16 [History] Methadone 10 mg PO 5XD PRN 11/23/16 [History] Nitroglycerin [Nitrostat] 0.4 mg SL Q5M PRN 11/23/16 [History] Omeprazole 20 mg PO DAILY 11/23/16 [History] Ondansetron ODT [Zofran ODT] 4 mg SL Q4H PRN 11/23/16 [History] Renal Vitamin [Renal Caps Softgel] 1 mg PO DAILY 11/23/16 [History] Tamsulosin HCl [Flomax] 0.4 mg PO BID 11/23/16 [History] Tizanidine HCl [Zanaflex] 4 mg PO TID PRN 11/23/16 [History] Trazodone HCl 100 mg PO HS 11/23/16 [History] amLODIPine [Norvasc] 10 mg PO BID 11/23/16 [History] cloNIDine HCl [Clonidine HCl] 0.3 mg PO TID 11/23/16 [History] Budesonide Neb [Pulmicort Neb] 0.5 mg IH BIDR #1 inhsol 11/25/16 [Rx] Metoclopramide HCl 5 mg PO HS 04/25/17 [History] Allergies BEE VENOM Allergy (Uncoded 11/23/16 09:18) Difficulty Swallowing BARIUM IODIDE Adverse Reaction (Uncoded 11/23/16 09:18) Vomiting IVP DYE Adverse Reaction (Uncoded 11/23/16 09:18) Vomiting All Systems: A 10-system review of systems was performed and is negative for pertinent findings except as documented above in the HPI. - Respiratory Respiratory: as per HPI Physical Examination Vital Signs: Vital Signs, Last 4 Hours Temp Pulse Resp BP Pulse Ox 04/26/17 06:50 98.4 F 68 18 173/84 100 General appearance: no acute distress, other (Cachectic male appears much older than his stated age) Eyes: nonicteric ENT: oropharynx moist Auscultation: bilateral: diminished breath sounds Cardiovascular: regular rate and rhythm Gastrointestinal: normoactive bowel sounds Extremities: no cyanosis, no edema, other (Severe wasting of peripheral muscles well as the intrinsic muscles of hands) normal mental status, non-focal exam depressed Results - Laboratory Findings CBC and BMP: 04/26/17 07:46 04/26/17 07:46 Abnormal lab findings: Abnormal lab results MCV 100.7 fL (83.0-100.0) H 04/26/17 07:46 RDW 14.9 % (11.5-14.5) H 04/26/17 07:46 Plt Count 118 K/mcL (140-400) L 04/26/17 07:46 Lymphocytes # 0.2 K/mcL (0.6-4.6) L 04/26/17 07:46 Creatinine 1.98 mg/dL (0.72-1.25) H 04/26/17 07:46 Est GFR ( Amer) 42 (> 60) L 04/26/17 07:46 Est GFR (Non-Af Amer) 35 (> 60) L 04/26/17 07:46 Calcium 8.5 mg/dL (8.6-10.8) L 04/26/17 07:46 Phosphorus 5.1 mg/dL (2.3-4.7) H 04/26/17 07:46 - Clinical Findings Intake & Output: Intake & Output 04/25/17 04/26/17 04/26/17 23:59 07:59 15:59 Intake Total 0 / 0 0 / 0 Output Total 0 / 0 0 / 0 Balance 0 / 0 0 / 0 Weight 60.2 kg 60.2 kg Consult Discharge Plan - Plan Referrals: Unassigned,Provider [Primary Care Provider] -
[2017-04-26 10:30] LABS: Estimated Average Glucose < 68 mg/dl; Hemoglobin A1C <= 3.9 %
[2017-04-26] MEDS: Ipratropium/Albuterol Neb 3 ML IH SCH ×3 (11:03→22:49)
--- NOTE | 2017-04-26 11:17 | Internal Med Progress Note ---
Date of Encounter: 04/26/17 Time of Encounter: 11:15 - Assessment and plan (1) Acute and chronic respiratory failure Current Visit: Yes Status: Acute Assessment and plan: secondary to the mucus plug in left mainstem bronchus pulmonology input noted and appreciated currently saturating well on nasal cannula will continue to closely monitor Qualifiers: Respiratory failure complication: hypoxia Qualified Code(s): J96.21 - Acute and chronic respiratory failure with hypoxia (2) ESRD on dialysis Current Visit: Yes Status: Chronic Assessment and plan: Nephro consultation appreciated will continue HD on MWF (3) DVT prophylaxis Current Visit: No Status: Acute (4) Hypertension Current Visit: Yes Status: Chronic Assessment and plan: BP improved after receiving morning home meds will closely monitor Hydralazine 10mg IV q6h prn SBP>150 Qualifiers: Hypertension type: essential hypertension Qualified Code(s): I10 - Essential (primary) hypertension - Subjective Interval history: Patient seen and examined at bedside. REported of feeling uncomfortably and felt better once his position was changed. As per his living will he wishes to be DNR/DNI - Constitutional Vitals: Temp Pulse Resp BP Pulse Ox 98.4 F 68 18 173/84 100 04/26/17 06:50 04/26/17 06:50 04/26/17 11:05 04/26/17 06:50 04/26/17 11:05 General appearance: Present: cachectic, A&O X 3, no acute distress, answers questions appropriately - Head Head exam: Present: atraumatic, normocephalic - Eye Eye exam: Present: conjuntiva pink, sclera anicteric - Respiratory Respiratory exam: Absent: respiratory distress, wheezes Additional comments: equal air entry bilaterally - Cardiovascular Cardiovascular exam: Present: RRR, +S1, +S2. Absent: diastolic murmur, gallop, rubs, systolic murmur - GI/Abdominal GI/Abdominal exam: Present: normal bowel sounds, soft, no peritoneal signs. Absent: distended, tenderness - Extremities Exam Extremities exam: Present: warm, radial pulses palpable and symetrical. Absent : calf tenderness, cyanotic, pedal edema - Neurological Exam Neurological exam: Present: alert - Psychiatric Psychiatric exam: Present: normal affect, normal mood Internal Medicine: Result - Labs CBC & Chem 7: 04/26/17 07:46 04/26/17 07:46 Labs: Short CBC 04/26/17 Range/Units 07:46 WBC 9.1 (4.3-11.1) K/mcL Hgb 14.3 (12.9-16.9) g/dL Hct 45.0 (37.5-50.1) % Plt Count 118 L (140-400) K/mcL Neutrophils # 8.6 (1.6-8.9) K/mcL BMP 04/26/17 04/26/17 04:49 07:46 Sodium 137 138 Potassium 4.0 4.2 Chloride 99 100 Carbon Dioxide 30 H 28 BUN 19 20 Creatinine 1.93 H 1.98 H Glucose 83 91 Calcium 8.6 8.5 L Consult Discharge Plan - Plan Referrals: Unassigned,Provider [Primary Care Provider] -
[2017-04-26] MEDS: *HR* Morphine 2 MG/ML SYRINGE IVP PRN (20:54)
[2017-04-26] MEDS ORDERED: traZODone 50 MG TABLET PO SCH (21:00)
[2017-04-27] MEDS: Ipratropium/Albuterol Neb 3 ML IH SCH ×4 (04:00→23:05)
[2017-04-27 05:17] LABS: Basophils % 0.1 %; Hematocrit 36.7 % (37.5-50.1); Immature Granulocytes % 0.9 % (0-4); Lymphocytes # 0.7 K/mcL (0.6-4.6); Lymphocytes % 9.4 %; Mean Corpuscular HGB Conc 31.6 g/dL (31.6-35.5); Mean Corpuscular Hemoglobin 31.5 pg (28.0-33.3); Mean Corpuscular Volume 99.7 fL (83.0-100.0); Mean Platelet Volume 10.3 fL (9.4-12.4); Monocytes # 0.4 K/mcL (0.0-1.3); Monocytes % 4.9 %; Neutrophils # 6.7 K/mcL (1.6-8.9); Platelet Count 152 K/mcL (140-400); Red Blood Count 3.68 M/mcL (4.19-5.50); Red Cell Distribution Width 14.9 % (11.5-14.5); Segmented Neutrophils % 84.7 %
[2017-04-27 05:19] LABS: Hemoglobin 11.6 g/dL (12.9-16.9)
[2017-04-27 05:26] LABS: Calcium 8.2 mg/dL (8.6-10.8); Magnesium 1.8 mg/dL (1.6-2.6)
[2017-04-27 05:35] LABS: Potassium 5.5 mEq/L (3.5-4.5)
--- NOTE | 2017-04-27 08:00 | Pulmonology Progress Note ---
Date of Encounter: 04/27/17 Time of Encounter: 07:57 Assessment and Plan (1) Hypoxemia Current Visit: Yes Status: Acute Patient upon review of chest imaging, hypoxemia in this particular individual is likely secondary to atelectasis of the left lower lobe. This patient has a weak cough seeming propensity for mucous obstruction of airway as a result of his impaired pulmonary hygiene. Given his inability to substantially clear airway, bronchoscopy will be performed today. I reviewed this with the patient and his spouse and both agree to proceed. As previously noted, given this patient's debilitation seeming muscle wasting, I wonder if he has an underlying neuromuscular disorder. Alternatively, he may have severe muscle dysfunction due to his underlying end-stage renal disease. Nonetheless, this patient will have a increased propensity in the future for mucous obstruction of airway. Code(s): R09.02 - Hypoxemia SNOMED Code(s): 753239026 Subjective Principal diagnosis: Hypoxemia Interval history: No new issues reported overnight, the patient's oxygen saturations are 100% on low-flow supplemental oxygen. The patient has been receiving bronchodilator therapy but is uncertain if he is actually also receiving concurrent bronchopulmonary hygiene measures (clapping, percussion, the chest). This patient is quite debilitated frail and notably has an extremely weak cough. Objective PUL Vital signs: Last Vital Signs Temp 98.3 F 04/27/17 04:32 Pulse 65 04/27/17 04:32 Resp 14 04/27/17 04:32 BP 117/83 04/27/17 04:32 Pulse Ox 100 04/27/17 04:32 General appearance: no acute distress, other (Frail, cachectic, appears older than stated age) Eyes: nonicteric ENT: oropharynx moist Mallampati (class): 2 Auscultation: bilateral: diminished breath sounds Cardiovascular: regular rate and rhythm Gastrointestinal: normoactive bowel sounds Extremities: no cyanosis normal mental status, non-focal exam Results - Laboratory Findings CBC and BMP: 04/27/17 04:35 04/27/17 04:35 Abnormal lab findings: Abnormal lab results RBC 3.68 M/mcL (4.19-5.50) L 04/27/17 04:35 Hgb 11.6 g/dL (12.9-16.9) L D 04/27/17 04:35 Hct 36.7 % (37.5-50.1) L 04/27/17 04:35 RDW 14.9 % (11.5-14.5) H 04/27/17 04:35 Potassium 5.5 mEq/L (3.5-4.5) H D 04/27/17 04:35 BUN 27 mg/dL (8-26) H 04/27/17 04:35 Creatinine 2.39 mg/dL (0.72-1.25) H 04/27/17 04:35 Est GFR ( Amer) 34 (> 60) L 04/27/17 04:35 Est GFR (Non-Af Amer) 28 (> 60) L 04/27/17 04:35 Calcium 8.2 mg/dL (8.6-10.8) L 04/27/17 04:35 Phosphorus 6.0 mg/dL (2.3-4.7) H 04/27/17 04:35 - Clinical Findings Intake & Output: Intake & Output 04/26/17 04/26/17 04/27/17 15:59 23:59 07:59 Weight 62 kg Consult Discharge Plan - Plan Referrals: Unassigned,Provider [Primary Care Provider] -
[2017-04-27] MEDS ORDERED: *HR* Midazolam HCl 5 MG/5 ML VIAL IVP ONE (08:19)
[2017-04-27] MEDS ORDERED: *HR* FentaNYL (PF) 100 MCG/2 ML VIAL ONE (08:20)
[2017-04-27] MEDS ORDERED: Lidocaine Viscous Oral Soln 15 ML SOLUTION ONE (08:20)
[2017-04-27] MEDS ORDERED: 0.9 % Sodium Chloride 500 ML IVC SCH (08:45)
[2017-04-27] MEDS ORDERED: 0.9 % Sodium Chloride 250 ML IVC PRN (09:04)
[2017-04-27] MEDS ORDERED: *HR* FentaNYL (PF) 100 MCG/2 ML VIAL IVP PRN (09:05)
[2017-04-27] MEDS ORDERED: *HR* Midazolam HCl 5 MG/5 ML VIAL IVP PRN (09:05)
[2017-04-27] MEDS ORDERED: 0.9 % Sodium Chloride 1,000 ML PRIME SCH (09:15)
--- NOTE | 2017-04-27 09:46 | Nephrology Progress Note ---
Date of Encounter: 04/27/17 Time of Encounter: 09:30 - Assessment and Plan (1) ESRD on dialysis Current Visit: Yes Status: Chronic Acute on chronic respiratory failure. ESRD. HD today, keeping MWF schedule. Orders given. Subjective Principal diagnosis: Hypoxemia Interval history: Seen on HD, S/P bronchoscopy this AM. Arouses easily, moist cough. Objective - Vital Signs Vital signs: Vital Signs Temp Pulse Resp BP Pulse Ox 04/27/17 09:01 65 18 179/117 97 04/27/17 08:56 92 18 159/102 100 04/27/17 08:46 100 18 177/98 100 04/27/17 08:38 98.4 F 97 12 118/68 100 04/27/17 07:36 98.4 F 97 12 118/68 100 04/27/17 04:32 98.3 F 65 14 117/83 100 04/27/17 00:08 98.9 F 89 14 110/55 100 04/26/17 22:50 14 100 04/26/17 18:32 98.2 F 88 14 156/57 100 04/26/17 16:20 18 100 04/26/17 15:54 97.6 F 65 18 149/65 100 04/26/17 11:40 97.4 F L 84 18 149/45 100 04/26/17 11:05 18 100 Intake and Output 04/26/17 04/27/17 04/27/17 23:59 07:59 15:59 Intake Total 0 / 0 200 / 200 Output Total 0 / 0 Balance 0 / 0 200 / 200 Intake: IV Fluids 200 / 200 0.9 % Sodium Chloride 500 200 / 200 ML @ 50 mls/hr IVC .Q10H DANISHA Rx#:[id number] Oral 0 / 0 Output: Urine 0 / 0 Other: Weight 62 kg Blood Glucose* 90 67 Patient Weight 04/27/17 23:59 Weight 62 kg - General Appearance General appearance: Present: cachectic, chronically ill, frail EENT: Present: mucous membranes moist Additional Comments: tongue rolling Neck: Present: no JVD Respiratory: Present: rhonchi Cardiology: Present: no edema, regular rate, regular rhythm Gastrointestinal: Present: normoactive bowel sounds, no guarding Integumentary: Present: warm and dry Psychiatric: Present: mood/affect appropriate, cooperative - Lab 04/27/17 04:35 04/27/17 04:35 Most recent lab results Calcium 8.2 mg/dL (8.6-10.8) L 04/27/17 04:35 Phosphorus 6.0 mg/dL (2.3-4.7) H 04/27/17 04:35 Magnesium 1.8 mg/dL (1.6-2.6) 04/27/17 04:35 Consult Discharge Plan - Plan Referrals: Unassigned,Provider [Primary Care Provider] -
[2017-04-27 10:28] LABS: Hepatitis B Surface Antibody 0.85 mIU/mL; Hepatitis B Surface Antigen Nonreactive (Nonreactive)
[2017-04-27] MEDS ORDERED: 0.9 % Sodium Chloride 2,000 ML ONE (12:23)
--- NOTE | 2017-04-27 14:27 | Internal Med Progress Note ---
Date of Encounter: 04/27/17 Time of Encounter: 13:05 - Assessment and plan (1) Acute and chronic respiratory failure Current Visit: Yes Status: Acute Assessment and plan: secondary to the mucus plug in left mainstem bronchus pulmonology input noted and appreciated s/p bronchoscopy (04/27/17). Will follow up serologies currently saturating well on nasal cannula will continue to closely monitor Qualifiers: Respiratory failure complication: hypoxia Qualified Code(s): J96.21 - Acute and chronic respiratory failure with hypoxia (2) ESRD on dialysis Current Visit: Yes Status: Chronic Assessment and plan: Nephro consultation appreciated will continue HD on MWF s.p HD today (04/27/17) (3) DVT prophylaxis Current Visit: No Status: Acute Assessment and plan: HEparin SQ (4) Hypertension Current Visit: Yes Status: Chronic Assessment and plan: Hypertensive as patient did not received his antihypertensive medications will closely monitor Hydralazine 10mg IV q6h prn SBP>150 Qualifiers: Hypertension type: essential hypertension Qualified Code(s): I10 - Essential (primary) hypertension - Subjective Interval history: Patient seen and examined in hemodialysis. Patient resting in bed and reports of feeling better compared to previous day. s/p bronchoscopy (04/27/17) He was evaluated by speech therapy yesterday and MBS was recommended. Patient was taken to bronchoscopy early this morning due to which MBS wasn't done. Plan is to get the MBS study this afternoon and speech therapy to reassess the patient today, as patient cannot be NPO all throughout the weekend. Speech therapy on board and agree with the plan. Patient states at baseline he is not able to walk due to severe weakness. He uses wheelchair to get around and is fairly bed bound for the most part. States he has extensive home health services and his helps him at home. - Constitutional Vitals: Temp Pulse Resp BP Pulse Ox 97.9 F 65 18 162/79 97 04/27/17 09:40 04/27/17 09:01 04/27/17 09:40 04/27/17 12:55 04/27/17 09:01 General appearance: Present: cachectic, cooperative, A&O X 3, no acute distress , answers questions appropriately - Head Head exam: Present: atraumatic, normocephalic - Eye Eye exam: Present: conjuntiva pink, sclera anicteric - Respiratory Respiratory exam: Absent: respiratory distress, wheezes - Cardiovascular Cardiovascular exam: Present: RRR, +S1, +S2. Absent: diastolic murmur, gallop, rubs, systolic murmur - GI/Abdominal GI/Abdominal exam: Present: normal bowel sounds, soft, no peritoneal signs. Absent: distended, tenderness - Extremities Exam Extremities exam: Present: warm, radial pulses palpable and symetrical. Absent : calf tenderness, cyanotic, pedal edema - Neurological Exam Neurological exam: Present: alert, oriented X3, no focal deficits Internal Medicine: Result - Labs CBC & Chem 7: 04/27/17 04:35 04/27/17 04:35 Labs: Short CBC 04/27/17 Range/Units 04:35 WBC 7.9 (4.3-11.1) K/mcL Hgb 11.6 L D (12.9-16.9) g/dL Hct 36.7 L (37.5-50.1) % Plt Count 152 (140-400) K/mcL Neutrophils # 6.7 (1.6-8.9) K/mcL BMP 04/27/17 04:35 Sodium 137 Potassium 5.5 H D Chloride 100 Carbon Dioxide 28 BUN 27 H Creatinine 2.39 H Glucose 75 Calcium 8.2 L Consult Discharge Plan - Plan Referrals: Unassigned,Provider [Primary Care Provider] -
[2017-04-27] MEDS: *HR* Methadone 10 MG TABLET PO SCH ×3 (15:35→23:40)
[2017-04-27] MEDS: *HR* Heparin 5,000 UNIT/ML VIAL SQ SCH ×2 (15:36→21:03)
[2017-04-27] MEDS: cloNIDine HCl 0.1 MG TABLET PO SCH ×3 (15:37→21:06)
[2017-04-27] MEDS: hydrALAZINE 25 MG TABLET PO SCH ×3 (15:40→21:08)
[2017-04-27] MEDS: (Lubiprostone [Amitiza] 24 MCG) PO SCH (15:41)
[2017-04-27] MEDS: Insulin LISPRO 300 UNITS/3 ML VIAL SQ SCH ×3 (15:41→23:40)
[2017-04-27] MEDS: Isosorbide MONOnitrate (24 HR) 60 MG TAB.ER.24H PO SCH (15:58)
[2017-04-27] MEDS: amLODIPine 5 MG TABLET PO SCH ×2 (15:58→21:09)
[2017-04-27] MEDS: Renal Vitamin 1 MG CAPSULE PO SCH (15:59)
[2017-04-27] MEDS: Aspirin 325 MG TABLET PO SCH (15:59)
[2017-04-27] MEDS: *HR* Morphine 2 MG/ML SYRINGE IVP PRN ×2 (16:15→21:19)
[2017-04-27] MEDS ORDERED: *HR* Morphine 2 MG/ML SYRINGE IVP SCH (20:26)
[2017-04-27] MEDS: traZODone 50 MG TABLET PO SCH (21:07)
[2017-04-28] MEDS: Ipratropium/Albuterol Neb 3 ML IH SCH ×4 (04:09→22:04)
[2017-04-28 05:08] LABS: Hematocrit 37.8 % (37.5-50.1); Hemoglobin 12.1 g/dL (12.9-16.9); Immature Granulocytes % 0.3 % (0-4); Lymphocytes # 0.6 K/mcL (0.6-4.6); Lymphocytes % 8.4 %; Mean Corpuscular Hemoglobin 32.2 pg (28.0-33.3); Mean Corpuscular Volume 100.5 fL (83.0-100.0); Mean Platelet Volume 10.1 fL (9.4-12.4); Monocytes # 0.3 K/mcL (0.0-1.3); Neutrophils # 6.5 K/mcL (1.6-8.9); Platelet Count 141 K/mcL (140-400); Red Blood Count 3.76 M/mcL (4.19-5.50); Red Cell Distribution Width 14.7 % (11.5-14.5); Segmented Neutrophils % 87.3 %
[2017-04-28 05:28] LABS: Calcium 8.4 mg/dL (8.6-10.8); Magnesium 1.6 mg/dL (1.6-2.6); Phosphorous 5.1 mg/dL (2.3-4.7)
[2017-04-28 05:31] LABS: Potassium 4.2 mEq/L (3.5-4.5)
[2017-04-28] MEDS: Insulin LISPRO 300 UNITS/3 ML VIAL SQ SCH ×3 (06:28→17:54)
[2017-04-28] MEDS: hydrALAZINE 25 MG TABLET PO SCH ×3 (08:23→21:04)
[2017-04-28] MEDS: amLODIPine 5 MG TABLET PO SCH ×2 (08:24→21:05)
[2017-04-28] MEDS: Aspirin 325 MG TABLET PO SCH (08:24)
[2017-04-28] MEDS: Renal Vitamin 1 MG CAPSULE PO SCH (08:24)
[2017-04-28] MEDS: *HR* Heparin 5,000 UNIT/ML VIAL SQ SCH ×2 (08:25→20:59)
[2017-04-28] MEDS: *HR* Methadone 10 MG TABLET PO SCH ×2 (08:25→15:47)
--- NOTE | 2017-04-28 08:25 | Pulmonology Progress Note ---
Date of Encounter: 04/28/17 Time of Encounter: 07:40 Assessment and Plan (1) Hypoxemia Current Visit: Yes Status: Acute Patient upon review of chest imaging, hypoxemia in this particular individual is likely secondary to atelectasis of the left lower lobe. This patient has a weak cough seeming propensity for mucous obstruction of airway as a result of his impaired pulmonary hygiene. Given his inability to substantially clear airway, bronchoscopy was performed yesterday, results notable for inflammatory changes within the left lower lobe as well as substantial thick mucopurulent secretions. As previously noted, given this patient's debilitation seeming muscle wasting, I wonder if he has an underlying neuromuscular disorder. Alternatively, he may have severe muscle dysfunction due to his underlying end-stage renal disease. Nonetheless, this patient will have a increased propensity in the future for mucous obstruction of airway. It is also likely the patient may aspirate, apparently he is undergoing evaluation for the same. Code(s): R09.02 - Hypoxemia SNOMED Code(s): 144926189 Subjective Principal diagnosis: Hypoxemia Interval history: No new issues reported overnight, the patient's oxygen saturations are 100% on low-flow supplemental oxygen. The patient has been receiving bronchodilator therapy but is uncertain if he is actually also receiving concurrent bronchopulmonary hygiene measures (clapping, percussion, the chest). Bronchoscopy performed on revealed retained mucoid secretions as well as airway inflammatory changes within the left lower lobe. This patient is quite debilitated frail and notably has an extremely weak cough , suspect that he may aspirate. Objective PUL Vital signs: Last Vital Signs Temp 98.2 F 04/28/17 08:18 Pulse 59 04/28/17 08:18 Resp 15 04/28/17 08:18 BP 165/87 04/28/17 08:18 Pulse Ox 100 04/28/17 08:18 General appearance: no acute distress, other (Cachectic male appears older than his stated age, temporal wasting) Eyes: nonicteric ENT: oropharynx moist Neck: no lymphadenopathy Auscultation: left: other (Minimal rhonchi left base), bilateral: diminished breath sounds Cardiovascular: regular rate and rhythm Gastrointestinal: normoactive bowel sounds, non-distended Extremities: no cyanosis, other (Wasting of peripheral musculature wasting of intrinsic muscles of the hand) normal mental status, non-focal exam, other (Generalized weakness of extremities , weak poor cough) Results - Laboratory Findings CBC and BMP: 04/28/17 04:42 04/28/17 04:42 Abnormal lab findings: Abnormal lab results RBC 3.76 M/mcL (4.19-5.50) L 04/28/17 04:42 Hgb 12.1 g/dL (12.9-16.9) L 04/28/17 04:42 MCV 100.5 fL (83.0-100.0) H 04/28/17 04:42 RDW 14.7 % (11.5-14.5) H 04/28/17 04:42 Chloride 97 mEq/L (98-109) L 04/28/17 04:42 Carbon Dioxide 33 mEq/L (19-29) H 04/28/17 04:42 Creatinine 1.79 mg/dL (0.72-1.25) H 04/28/17 04:42 Est GFR ( Amer) 47 (> 60) L 04/28/17 04:42 Est GFR (Non-Af Amer) 39 (> 60) L 04/28/17 04:42 Glucose 67 mg/dL (70-99) L 04/28/17 04:42 Calcium 8.4 mg/dL (8.6-10.8) L 04/28/17 04:42 Phosphorus 5.1 mg/dL (2.3-4.7) H 04/28/17 04:42 - Diagnostic Findings Additional studies: Await results of bronchoscopy (specimen sent for microbiological cytological analysis). - Clinical Findings Intake & Output: Intake & Output 04/27/17 04/28/17 04/28/17 23:59 07:59 15:59 Weight 61.8 kg Consult Discharge Plan - Plan Referrals: Unassigned,Provider [Primary Care Provider] -
[2017-04-28] MEDS: Isosorbide MONOnitrate (24 HR) 60 MG TAB.ER.24H PO SCH (08:27)
[2017-04-28] MEDS: (Lubiprostone [Amitiza] 24 MCG) PO SCH (08:27)
[2017-04-28] MEDS: cloNIDine HCl 0.1 MG TABLET PO SCH ×3 (08:30→21:03)
--- NOTE | 2017-04-28 08:46 | Nephrology Progress Note ---
Date of Encounter: 04/28/17 Time of Encounter: 08:45 - Assessment and Plan (1) ESRD on dialysis Current Visit: Yes Status: Chronic Patient is status post dialysis yesterday. His breathing is improved following bronchoscopy. Patient has generalized muscle wasting. It may be worthwhile to request a neurology consult for additional evaluation. (2) Muscle wasting and atrophy, not elsewhere classified, other site Current Visit: Yes Status: Acute (3) Acute and chronic respiratory failure Current Visit: Yes Status: Acute Qualifiers: Respiratory failure complication: hypoxia Qualified Code(s): J96.21 - Acute and chronic respiratory failure with hypoxia (4) COPD (chronic obstructive pulmonary disease) Current Visit: Yes Status: Chronic Qualifiers: COPD type: emphysema Emphysema type: centrilobular Qualified Code(s): J43.2 - Centrilobular emphysema Subjective Principal diagnosis: Hypoxemia Interval history: The patient reports he is feeling better. He is status post bronchoscopy yesterday. He says his breathing is improved. He also had dialysis yesterday. Objective - Vital Signs Vital signs: Vital Signs Temp Pulse Resp BP Pulse Ox 04/28/17 08:18 98.2 F 59 15 165/87 100 04/28/17 05:28 98.2 F 64 16 166/90 100 04/28/17 04:09 14 100 04/28/17 00:31 98.5 F 79 15 156/79 100 04/27/17 23:08 100 04/27/17 23:05 13 100 04/27/17 20:44 98.9 F 65 12 174/105 100 04/27/17 15:48 16 99 04/27/17 13:20 97.9 F 18 179/91 04/27/17 13:10 167/77 04/27/17 12:55 162/79 04/27/17 12:40 157/82 04/27/17 12:25 163/91 04/27/17 12:10 169/77 04/27/17 11:55 172/75 04/27/17 11:40 169/82 04/27/17 11:25 165/77 04/27/17 11:10 178/88 04/27/17 10:55 167/86 04/27/17 10:40 169/86 04/27/17 10:25 171/84 04/27/17 10:10 177/85 04/27/17 09:55 168/85 04/27/17 09:40 97.9 F 18 158/87 04/27/17 09:01 65 18 179/117 97 04/27/17 08:56 92 18 159/102 100 04/27/17 08:46 100 18 177/98 100 Intake and Output 04/27/17 04/28/17 04/28/17 23:59 07:59 15:59 Other: Weight 61.8 kg Blood Glucose* 115 79 Patient Weight 04/28/17 23:59 Weight 61.8 kg - General Appearance Exam: Patient is alert and oriented. He is no acute distress. He appears cachectic and chronically ill. Neck supple. Lungs diminished breath sounds. Heart regular rate and rhythm. Abdomen is benign. There is no lower extremity swelling. He has evidence of muscle wasting. There is a functioning AV fistula in the left arm. - Lab 04/28/17 04:42 04/28/17 04:42 Most recent lab results Calcium 8.4 mg/dL (8.6-10.8) L 04/28/17 04:42 Phosphorus 5.1 mg/dL (2.3-4.7) H 04/28/17 04:42 Magnesium 1.6 mg/dL (1.6-2.6) 04/28/17 04:42 Consult Discharge Plan - Plan Referrals: Unassigned,Provider [Primary Care Provider] -
--- NOTE | 2017-04-28 11:12 | Internal Med Progress Note ---
Date of Encounter: 04/28/17 Time of Encounter: 11:10 - Assessment and plan (1) Acute and chronic respiratory failure Current Visit: Yes Status: Acute Assessment and plan: secondary to the mucus plug in left mainstem bronchus pulmonology input noted and appreciated s/p bronchoscopy (04/27/17). Will follow up serologies currently saturating well on nasal cannula will continue to closely monitor D/C pending bronchoscopy fluid analysis If remains stable, likely d/c in am with outpatient follow up with pulmonary patient will benefit from outpatient neurology follow up given concern for neuromuscular disorder from his clinical presentation Qualifiers: Respiratory failure complication: hypoxia Qualified Code(s): J96.21 - Acute and chronic respiratory failure with hypoxia (2) ESRD on dialysis Current Visit: Yes Status: Chronic Assessment and plan: Nephro consultation appreciated will continue HD on MWF s.p HD (04/27/17) (3) DVT prophylaxis Current Visit: No Status: Acute Assessment and plan: HEparin SQ (4) Hypertension Current Visit: Yes Status: Chronic Assessment and plan: Will continue home medications and Hydralazine prn will closely monitor Hydralazine 10mg IV q6h prn SBP>150 Qualifiers: Hypertension type: essential hypertension Qualified Code(s): I10 - Essential (primary) hypertension - Subjective Interval history: Patient seen and examined at bedside. Resting in bed and reports of feeling better compared to previous day. No overnight issues reported. s/p bronchoscopy (04/27/17) - Constitutional Vitals: Temp Pulse Resp BP Pulse Ox 98.2 F 59 15 165/87 98 04/28/17 08:18 04/28/17 08:18 04/28/17 11:00 04/28/17 08:18 04/28/17 11:00 General appearance: Present: cachectic, cooperative, A&O X 3, no acute distress , answers questions appropriately - Head Head exam: Present: atraumatic, normocephalic - Eye Eye exam: Present: conjuntiva pink, sclera anicteric - Respiratory Respiratory exam: Absent: respiratory distress, wheezes - Cardiovascular Cardiovascular exam: Present: RRR, +S1, +S2. Absent: diastolic murmur, gallop, rubs, systolic murmur - GI/Abdominal GI/Abdominal exam: Present: normal bowel sounds, soft, no peritoneal signs. Absent: distended, tenderness - Extremities Exam Extremities exam: Present: warm, radial pulses palpable and symetrical. Absent : calf tenderness, cyanotic, pedal edema - Neurological Exam Neurological exam: Present: alert, oriented X3 - Psychiatric Psychiatric exam: Present: normal affect, normal mood Internal Medicine: Result - Labs CBC & Chem 7: 04/28/17 04:42 04/28/17 04:42 Labs: Short CBC 04/28/17 Range/Units 04:42 WBC 7.4 (4.3-11.1) K/mcL Hgb 12.1 L (12.9-16.9) g/dL Hct 37.8 (37.5-50.1) % Plt Count 141 (140-400) K/mcL Neutrophils # 6.5 (1.6-8.9) K/mcL BMP 04/28/17 04:42 Sodium 136 Potassium 4.2 D Chloride 97 L Carbon Dioxide 33 H BUN 21 Creatinine 1.79 H Glucose 67 L Calcium 8.4 L - Impressions Impressions Videofluoroscopic Swallow 04/27/17 14:16 IMPRESSION: High residuals in the pharynx. No definite penetration or aspiration. Please see separate speech pathology report for full discussion of findings and recommendations. D/ / David Rahman MD / David Rahman MD Interpreting Provider: David Rahman MD Consult Discharge Plan - Plan Referrals: Unassigned,Provider [Primary Care Provider] -
--- NOTE | 2017-04-28 12:25 | Neurology - Consult Note ---
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 Also has family history of depression and suicide in multiple family members. EMG as outpatient - to exclude demyelinating neuropathy. Transthyretin (and neuropathy genes) gene testing ([employer]; will provide form, will be happy to interpret the results). Family is willing to be tested. May need PEG tube placement - patient does not want to, however. Outpatient neurology follow-up with Dr. Crowley/Shantell. Call if questions. History of Present Illness Chief complaint: weakness HPI: Mr. Prater is a 57 year old male with prior history of hypertension (since age 28), diabetes (since age 38(?), neuropathy ("many years"), COPD, chronic kidney disease ("many years") who has been followed by nephrologists for a long time. They have noticed that he has been having difficulties with his "muscles atrophying" and neurology has been asked to see him. He has lost a lot of weight and has been in the wheel chair for the last year. He also states that he had neuropathy since many many years ago. He states that his sister and mother have had similar issues, and multiple other family members as well. He has no double vision or swallowing difficulties. He has recently been coughing during his food intake. He has lost weight. no fevers, chills. No breathing difficulties, apart from the baseline COPD issues. Unclear if he had EMG done before. He is a DNR-DNI patient. Family history is also significant for familial depression, and suicide in multiple family members. Past Med Surg Social Fam HX - Past Medical History Medical history: arthritis, CHF, COPD, coronary artery disease, diabetes, dialysis, GERD, hyperlipidemia, hypertension, osteoporosis, peripheral artery disease, renal disease, other Psychiatric history: anxiety, depression, other - Past Surgical History Surgical History: angioplasty/stent, appendectomy, arthroscopy, cataract, cholecystectomy, knee replacement, orthopedic, other, vascular surgery, other - Social History Smoking Status: Never smoker Smokeless Tobacco Status: No Alcohol use: unknown Drug use: unknown - Family History Father Adopted: No Age: 56 Family Member Ethnicity: Non- Living Status: Age at : 56 Cause of : cancer Hx Family Cardiac Disorders: Yes Hx Family Respiratory Disorders: No Hx Family Cancer: No Medications and Allergies Albuterol Sulfate [Ventolin Hfa] 1 - 2 puff IH Q4-6H PRN 11/23/16 [History] Aspirin 325 mg PO DAILY 11/23/16 [History] Atenolol [Tenormin] 25 mg PO DAILY 11/23/16 [History] Atorvastatin Calcium [Lipitor] 20 mg PO QPM 11/23/16 [History] Docusate Sodium [Dok] 200 mg PO DAILY 11/23/16 [History] EPINEPHrine [Epipen] 0.3 mg IM ONCE PRN 11/23/16 [History] Ergocalciferol (VITAMIN D2) [Vitamin D2] 50,000 unit PO MO 11/23/16 [History] Escitalopram [Lexapro] 20 mg PO DAILY 11/23/16 [History] Furosemide [Lasix] 80 mg PO BID 11/23/16 [History] Hydralazine HCl 100 mg PO TID 11/23/16 [History] Insulin ASPART [NovoLOG] 2 - 10 unit SQ TID PRN 11/23/16 [History] Insulin Glargine [Lantus] 25 unit SQ HS 11/23/16 [History] Isosorbide MONOnitrate (24 HR) [Imdur] 60 mg PO DAILY 11/23/16 [History] LORazepam [Ativan] 1 mg PO BID PRN 11/23/16 [History] Lisinopril [Zestril] 10 mg PO BID 11/23/16 [History] Lubiprostone [Amitiza] 24 mcg PO DAILY 11/23/16 [History] Methadone 10 mg PO 5XD PRN 11/23/16 [History] Nitroglycerin [Nitrostat] 0.4 mg SL Q5M PRN 11/23/16 [History] Omeprazole 20 mg PO DAILY 11/23/16 [History] Ondansetron ODT [Zofran ODT] 4 mg SL Q4H PRN 11/23/16 [History] Renal Vitamin [Renal Caps Softgel] 1 mg PO DAILY 11/23/16 [History] Tamsulosin HCl [Flomax] 0.4 mg PO BID 11/23/16 [History] Tizanidine HCl [Zanaflex] 4 mg PO TID PRN 11/23/16 [History] Trazodone HCl 100 mg PO HS 11/23/16 [History] amLODIPine [Norvasc] 10 mg PO BID 11/23/16 [History] cloNIDine HCl [Clonidine HCl] 0.3 mg PO TID 11/23/16 [History] Budesonide Neb [Pulmicort Neb] 0.5 mg IH BIDR #1 inhsol 11/25/16 [Rx] Metoclopramide HCl 5 mg PO HS 04/25/17 [History] Allergies BEE VENOM Allergy (Uncoded 11/23/16 09:18) Difficulty Swallowing BARIUM IODIDE Adverse Reaction (Uncoded 11/23/16 09:18) Vomiting IVP DYE Adverse Reaction (Uncoded 11/23/16 09:18) Vomiting All Systems: A 10-system review of systems was performed and is negative for pertinent findings except as documented above in the HPI. - Constitutional Constitutional ROS IM: as per HPI Physical Examination - Vital Signs Vital Signs: Initial Vital Signs Pulse Resp BP Pulse Ox 72 14 177/82 95 04/25/17 21:23 04/25/17 21:23 04/25/17 21:23 04/25/17 21:23 - Exam Exam: Severely cachectic, expanded chest, severe muscle atrophy everywhere, macroglossia of tongue, no tongue fasciculations, no tongue atrophy, has bifacial weakness, hypophonic dysarthria, and diffuse generalized weakness - Constitutional General appearance: chronically ill, other (cachectic) - Neurologic Sensorimotor examination: fasciculations (in legs) Motor examination - right side: 45: deltoids, biceps, triceps, wrist flexion, wrist extension, 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, hip flexors, tibialis Anterior, quadriceps, toe extension (EHL), plantarflexion Motor examination - left side: 4/5: deltoids, biceps, triceps, wrist flexion, wrist extension, hip flexors, 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, quadriceps, tibialis Anterior, toe extension (EHL), plantarflexion Detailed sensory examination: other (significant distal sensory loss to vibration, light touch and pin prick) Reflex and gait examination: other (areflexia) Reflexes: Biceps: 0, Triceps: 0, Brachioradialis: 0, Patella: 0, Achilles: 0 ( multiple excoriations in legs) Mental Status Examination: awake, alert, oriented to person, oriented to place, oriented to time, follows commands appropriately, answers questions appropriately, no agnosia, no aphasia, no aproxia Cranial Nerve Exam: flattening of masolabic/folds: Right (Bifacial weakness), soft palate weakness: Right (hypophonic dysarthria) Cerebellar examination: dysarthria (hypophonic type) Results - Laboratory Findings CBC and BMP: 04/28/17 04:42 04/28/17 04:42 Abnormal lab findings: Abnormal lab results RBC 3.76 M/mcL (4.19-5.50) L 04/28/17 04:42 Hgb 12.1 g/dL (12.9-16.9) L 04/28/17 04:42 MCV 100.5 fL (83.0-100.0) H 04/28/17 04:42 RDW 14.7 % (11.5-14.5) H 04/28/17 04:42 Chloride 97 mEq/L (98-109) L 04/28/17 04:42 Carbon Dioxide 33 mEq/L (19-29) H 04/28/17 04:42 Creatinine 1.79 mg/dL (0.72-1.25) H 04/28/17 04:42 Est GFR ( Amer) 47 (> 60) L 04/28/17 04:42 Est GFR (Non-Af Amer) 39 (> 60) L 04/28/17 04:42 Glucose 67 mg/dL (70-99) L 04/28/17 04:42 Calcium 8.4 mg/dL (8.6-10.8) L 04/28/17 04:42 Phosphorus 5.1 mg/dL (2.3-4.7) H 04/28/17 04:42 Laboratory Results WBC 7.4 K/mcL (4.3-11.1) 04/28/17 04:42 RBC 3.76 M/mcL (4.19-5.50) L 04/28/17 04:42 Hgb 12.1 g/dL (12.9-16.9) L 04/28/17 04:42 Hct 37.8 % (37.5-50.1) 04/28/17 04:42 MCV 100.5 fL (83.0-100.0) H 04/28/17 04:42 MCH 32.2 pg (28.0-33.3) 04/28/17 04:42 MCHC 32.0 g/dL (31.6-35.5) 04/28/17 04:42 RDW 14.7 % (11.5-14.5) H 04/28/17 04:42 Plt Count 141 K/mcL (140-400) 04/28/17 04:42 MPV 10.1 fL (9.4-12.4) 04/28/17 04:42 Immature Gran % 0.3 % (0-4) 04/28/17 04:42 Seg Neutrophils % 87.3 % 04/28/17 04:42 Lymphocytes % 8.4 % 04/28/17 04:42 Monocytes % 4.0 % 04/28/17 04:42 Eosinophils % 0.0 % 04/28/17 04:42 Basophils % 0.0 % 04/28/17 04:42 Neutrophils # 6.5 K/mcL (1.6-8.9) 04/28/17 04:42 Lymphocytes # 0.6 K/mcL (0.6-4.6) 04/28/17 04:42 Monocytes # 0.3 K/mcL (0.0-1.3) 04/28/17 04:42 Eosinophils # 0.0 K/mcL (0.0-0.6) 04/28/17 04:42 Basophils # 0.0 K/mcL (0.0-0.2) 04/28/17 04:42 Sodium 136 mEq/L (136-145) 04/28/17 04:42 Potassium 4.2 mEq/L (3.5-4.5) D 04/28/17 04:42 Chloride 97 mEq/L (98-109) L 04/28/17 04:42 Carbon Dioxide 33 mEq/L (19-29) H 04/28/17 04:42 BUN 21 mg/dL (8-26) 04/28/17 04:42 Creatinine 1.79 mg/dL (0.72-1.25) H 04/28/17 04:42 Est GFR ( Amer) 47 (> 60) L 04/28/17 04:42 Est GFR (Non-Af Amer) 39 (> 60) L 04/28/17 04:42 BUN/Creatinine Ratio 12 (6-26) 04/28/17 04:42 Glucose 67 mg/dL (70-99) L 04/28/17 04:42 POC Glucose 60 (58-89) 04/27/17 16:28 Est Mean Plasma Glucose < 68 mg/dl 04/26/17 04:49 Hemoglobin A1c <= 3.9 % (-5.6) 04/26/17 04:49 Calculated Osmolality 283 (280-300) 04/28/17 04:42 Calcium 8.4 mg/dL (8.6-10.8) L 04/28/17 04:42 Phosphorus 5.1 mg/dL (2.3-4.7) H 04/28/17 04:42 Magnesium 1.6 mg/dL (1.6-2.6) 04/28/17 04:42 Hep Bs Antigen Nonreactive (Nonreactive) 04/27/17 08:13 Hep Bs Antibody 0.85 mIU/mL 04/27/17 08:13 Impressions Chest X-Ray 04/26/17 09:52 IMPRESSION: There is a large rounded opacity again noted projecting over the left lower lobe region corresponding to the abscess identified at recent CT scan. D/ / Dutch Low MD / Dutch Low MD Interpreting Provider: Dutch Low MD Videofluoroscopic Swallow 04/27/17 14:16 IMPRESSION: High residuals in the pharynx. No definite penetration or aspiration. Please see separate speech pathology report for full discussion of findings and recommendations. D/ / David Rahman MD / David Rahman MD Interpreting Provider: David Rahman MD Consult Discharge Plan - Plan Referrals: Unassigned,Provider [Primary Care Provider] -
[2017-04-28] MEDS: traZODone 50 MG TABLET PO SCH (21:05)
[2017-04-29] MEDS: Insulin LISPRO 300 UNITS/3 ML VIAL SQ SCH ×4 (00:31→18:09)
[2017-04-29] MEDS: *HR* Methadone 10 MG TABLET PO SCH ×3 (00:33→14:59)
[2017-04-29] MEDS: Ipratropium/Albuterol Neb 3 ML IH SCH ×4 (03:41→22:41)
[2017-04-29 04:24] LABS: Eosinophils % 0.2 %; Hematocrit 37.3 % (37.5-50.1); Immature Granulocytes % 0.4 % (0-4); Lymphocytes # 0.6 K/mcL (0.6-4.6); Lymphocytes % 6.9 %; Mean Corpuscular HGB Conc 32.2 g/dL (31.6-35.5); Mean Corpuscular Hemoglobin 32.3 pg (28.0-33.3); Mean Corpuscular Volume 100.5 fL (83.0-100.0); Mean Platelet Volume 10.1 fL (9.4-12.4); Monocytes # 0.3 K/mcL (0.0-1.3); Monocytes % 3.8 %; Neutrophils # 7.5 K/mcL (1.6-8.9); Platelet Count 149 K/mcL (140-400); Red Blood Count 3.71 M/mcL (4.19-5.50); Red Cell Distribution Width 14.4 % (11.5-14.5); Segmented Neutrophils % 88.7 %
[2017-04-29 04:40] LABS: Calcium 8.3 mg/dL (8.6-10.8); Magnesium 1.7 mg/dL (1.6-2.6); Potassium 4.7 mEq/L (3.5-4.5)
--- NOTE | 2017-04-29 08:24 | Pulmonology Progress Note ---
Date of Encounter: 04/29/17 Time of Encounter: 08:22 Assessment and Plan (1) Hypoxemia Current Visit: Yes Status: Acute Hypoxemia in this particular individual is likely secondary to atelectasis of the left lower lobe. This patient has a weak cough seeming propensity for mucous obstruction of airway as a result of his impaired pulmonary hygiene and suspected aspiration (no gross aspiration but suspect based upon swallowing evaluation). Given his inability to substantially clear airway, bronchoscopy was performed last week, results notable for inflammatory changes within the left lower lobe as well as substantial thick mucopurulent secretions. Heavy growth of gram negative organism identified today As previously noted, given this patient's debilitation seeming muscle wasting, I wonder if he has an underlying neuromuscular disorder. I note neurology has evaluated the patient and has recommended EMG for further discernment of neuromyopathic disorder. This patient is not toxic however given his significantly impaired pulmonary hygiene and identification of heavy growth of gram-negative organism, Levaquin will be instituted. Obviously, antibiotic will be and should be adjusted based upon the results of culture data identity and sensitivity of organism. Overall poor prognosis in this individual with severe cachexia and debilitation probable neuromuscular disorder with propensity for aspiration and end-stage renal disease. [facility] [phone] Code(s): R09.02 - Hypoxemia SNOMED Code(s): 885509232 Subjective Principal diagnosis: Hypoxemia Interval history: No new issues reported overnight, the patient's oxygen saturations remain 100% on low-flow supplemental oxygen. The patient has been receiving bronchodilator therapy, note poor cough and airway clearance despite of bronchodilators and pulmonary hygiene measures. Patient admits to fatigue and malaise anorexia weight loss otherwise comprehensive review of systems unremarkable. Objective PUL Vital signs: Last Vital Signs Temp 97.7 F 04/29/17 07:39 Pulse 61 04/29/17 07:39 Resp 16 04/29/17 07:39 BP 182/87 04/29/17 07:39 Pulse Ox 100 04/29/17 07:39 General appearance: no acute distress, other (Cachectic, wasted, note temporal wasting) Eyes: nonicteric ENT: oropharynx moist Auscultation: left: diminished breath sounds, rhonchi Cardiovascular: murmur noted Gastrointestinal: normoactive bowel sounds, non-distended Extremities: no cyanosis, no edema normal mental status, non-focal exam (Diffuse extremity weakness with the wasting of peripheral musculature decreased sensation legs.) Results - Laboratory Findings CBC and BMP: 04/29/17 03:40 04/29/17 03:40 Abnormal lab findings: Abnormal lab results RBC 3.71 M/mcL (4.19-5.50) L 04/29/17 03:40 Hgb 12.0 g/dL (12.9-16.9) L 04/29/17 03:40 Hct 37.3 % (37.5-50.1) L 04/29/17 03:40 MCV 100.5 fL (83.0-100.0) H 04/29/17 03:40 Sodium 133 mEq/L (136-145) L 04/29/17 03:40 Potassium 4.7 mEq/L (3.5-4.5) H 04/29/17 03:40 Chloride 96 mEq/L (98-109) L 04/29/17 03:40 Carbon Dioxide 32 mEq/L (19-29) H 04/29/17 03:40 BUN 31 mg/dL (8-26) H D 04/29/17 03:40 Creatinine 2.18 mg/dL (0.72-1.25) H 04/29/17 03:40 Est GFR ( Amer) 38 (> 60) L 04/29/17 03:40 Est GFR (Non-Af Amer) 31 (> 60) L 04/29/17 03:40 POC Glucose 150 (58-89) H 04/28/17 17:45 Calcium 8.3 mg/dL (8.6-10.8) L 04/29/17 03:40 Phosphorus 6.0 mg/dL (2.3-4.7) H 04/29/17 03:40 - Microbiology Findings Microbiology Findings: Microbiology, Last 48 Hours 04/27/17 09:07 Respiratory Culture - Preliminary Left Lower Lobe Lung Gram Negative Wyatt 04/27/17 09:07 Acid Fast Stain - Final Left Lower Lobe Lung - Clinical Findings Intake & Output: Intake & Output 04/28/17 04/29/17 04/29/17 23:59 07:59 15:59 Intake Total 0 / 0 0 / 0 Balance 0 / 0 0 / 0 Weight 61.6 kg Consult Discharge Plan - Plan Referrals: Unassigned,Provider [Primary Care Provider] -
[2017-04-29] MEDS: *HR* Heparin 5,000 UNIT/ML VIAL SQ SCH ×2 (08:37→21:25)
[2017-04-29] MEDS: amLODIPine 5 MG TABLET PO SCH ×2 (08:39→21:24)
[2017-04-29] MEDS: Aspirin 325 MG TABLET PO SCH (08:39)
[2017-04-29] MEDS: cloNIDine HCl 0.1 MG TABLET PO SCH ×3 (08:39→21:24)
[2017-04-29] MEDS: hydrALAZINE 25 MG TABLET PO SCH ×3 (08:39→21:24)
[2017-04-29] MEDS: Renal Vitamin 1 MG CAPSULE PO SCH (08:39)
[2017-04-29] MEDS: Isosorbide MONOnitrate (24 HR) 60 MG TAB.ER.24H PO SCH (08:39)
[2017-04-29] MEDS: (Lubiprostone [Amitiza] 24 MCG) PO SCH (08:42)
[2017-04-29] MEDS: *HR* LORazepam 1 MG TABLET PO PRN (08:49)
[2017-04-29] MEDS: levoFLOXacin 250 MG TABLET PO SCH (08:51)
--- NOTE | 2017-04-29 09:05 | Nephrology Progress Note ---
Date of Encounter: 04/29/17 Time of Encounter: 08:45 - Assessment and Plan (1) ESRD on dialysis Current Visit: Yes Status: Chronic Acute on chronic respiratory failure. ESRD. HD tomorrow, keeping MWF schedule. Neuro consult appreciated.. Subjective Principal diagnosis: Hypoxemia Interval history: Alert, talkative. No new complaints. at bedside. Objective - Vital Signs Vital signs: Vital Signs Temp Pulse Resp BP Pulse Ox 04/29/17 07:39 97.7 F 61 16 182/87 100 04/29/17 05:05 98.3 F 62 16 199/88 100 04/28/17 23:37 98.1 F 61 16 184/99 100 04/28/17 21:40 97.7 F 58 10 178/94 100 04/28/17 17:47 161/79 04/28/17 16:06 17 100 04/28/17 15:52 97.6 F 62 17 168/100 100 04/28/17 12:14 98.0 F 62 17 152/79 100 04/28/17 11:28 62 16 136/64 100 04/28/17 11:00 15 98 04/28/17 10:49 98 Intake and Output 04/28/17 04/29/17 04/29/17 23:59 07:59 15:59 Intake Total 0 / 0 0 / 0 Balance 0 / 0 0 / 0 Intake: Oral 0 / 0 0 / 0 Other: Meal Dinner Percent of Meal Consumed 100% # Voids 0 0 Weight 61.6 kg Blood Glucose* 88 93 Patient Weight 04/29/17 23:59 Weight 61.6 kg - General Appearance General appearance: Present: cachectic EENT: Present: mucous membranes moist Neck: Present: no JVD Respiratory: Present: clear Cardiology: Present: no edema, regular rate, regular rhythm Gastrointestinal: Present: normoactive bowel sounds, no tenderness Integumentary: Present: warm and dry Neurologic: Present: alert and oriented x3 Psychiatric: Present: mood/affect appropriate, cooperative - Lab 04/29/17 03:40 04/29/17 03:40 Most recent lab results Calcium 8.3 mg/dL (8.6-10.8) L 04/29/17 03:40 Phosphorus 6.0 mg/dL (2.3-4.7) H 04/29/17 03:40 Magnesium 1.7 mg/dL (1.6-2.6) 04/29/17 03:40 Consult Discharge Plan - Plan Referrals: Unassigned,Provider [Primary Care Provider] -
--- NOTE | 2017-04-29 12:18 | Internal Med Progress Note ---
Date of Encounter: 04/29/17 Time of Encounter: 12:16 - Assessment and plan (1) Acute and chronic respiratory failure Current Visit: Yes Status: Acute Assessment and plan: secondary to the mucus plug in left mainstem bronchus pulmonology input noted and appreciated s/p bronchoscopy (04/27/17). Respiratory culture positive for Gram negative Wyatt Levaquin started will f/u official culture results and alter abx therapy as per culture results currently saturating well on nasal cannula will continue to closely monitor D/C pending final culture results Qualifiers: Respiratory failure complication: hypoxia Qualified Code(s): J96.21 - Acute and chronic respiratory failure with hypoxia (2) ESRD on dialysis Current Visit: Yes Status: Chronic Assessment and plan: Nephro consultation appreciated will continue HD on MWF s.p HD (04/27/17) (3) DVT prophylaxis Current Visit: No Status: Acute Assessment and plan: HEparin SQ (4) Hypertension Current Visit: Yes Status: Chronic Assessment and plan: Will continue home medications and Hydralazine prn will closely monitor Hydralazine 10mg IV q6h prn SBP>150 Qualifiers: Hypertension type: essential hypertension Qualified Code(s): I10 - Essential (primary) hypertension (5) Cachexia Current Visit: Yes Status: Chronic Assessment and plan: Neurology consultation appreciated pt to follow up with Dr. Wade/Shantell as outpatient family aware and in agreement - Subjective Interval history: Patient seen and examined with present at bedside. Resting in bed and reports of feeling better compared to previous day. No overnight issues reported. s/p bronchoscopy (04/27/17) - Constitutional Vitals: Temp Pulse Resp BP Pulse Ox 98.3 F 62 16 149/59 95 04/29/17 11:43 04/29/17 11:43 04/29/17 11:43 04/29/17 11:43 04/29/17 11:43 General appearance: Present: cachectic, cooperative, A&O X 3, no acute distress , underweight, answers questions appropriately - Head Head exam: Present: atraumatic, normocephalic - Eye Eye exam: Present: conjuntiva pink, sclera anicteric - Respiratory Respiratory exam: Present: CTAB. Absent: accessory muscle use, rales, rhonchi, wheezes - Cardiovascular Cardiovascular exam: Present: RRR, +S1, +S2. Absent: diastolic murmur, gallop, rubs, systolic murmur - GI/Abdominal GI/Abdominal exam: Present: normal bowel sounds, soft, no peritoneal signs. Absent: distended, tenderness - Extremities Exam Extremities exam: Present: warm, radial pulses palpable and symetrical. Absent : calf tenderness, pedal edema - Neurological Exam Neurological exam: Present: alert, oriented X3 - Psychiatric Psychiatric exam: Present: normal affect, normal mood Internal Medicine: Result - Labs CBC & Chem 7: 04/29/17 03:40 04/29/17 03:40 Labs: Short CBC 04/29/17 Range/Units 03:40 WBC 8.4 (4.3-11.1) K/mcL Hgb 12.0 L (12.9-16.9) g/dL Hct 37.3 L (37.5-50.1) % Plt Count 149 (140-400) K/mcL Neutrophils # 7.5 (1.6-8.9) K/mcL BMP 04/29/17 03:40 Sodium 133 L Potassium 4.7 H Chloride 96 L Carbon Dioxide 32 H BUN 31 H D Creatinine 2.18 H Glucose 99 Calcium 8.3 L Consult Discharge Plan - Plan Referrals: Unassigned,Provider [Primary Care Provider] -
[2017-04-29] MEDS: traZODone 50 MG TABLET PO SCH (21:24)
[2017-04-30] MEDS: Insulin LISPRO 300 UNITS/3 ML VIAL SQ SCH ×4 (01:01→17:21)
[2017-04-30] MEDS: *HR* Methadone 10 MG TABLET PO SCH ×3 (01:01→17:34)
[2017-04-30] MEDS: Ipratropium/Albuterol Neb 3 ML IH SCH ×4 (03:37→22:32)
[2017-04-30 04:01] LABS: Basophils % 0.1 %; Eosinophils # 0.1 K/mcL (0.0-0.6); Eosinophils % 0.7 %; Hematocrit 38.9 % (37.5-50.1); Hemoglobin 12.1 g/dL (12.9-16.9); Immature Granulocytes % 0.2 % (0-4); Lymphocytes # 0.5 K/mcL (0.6-4.6); Lymphocytes % 6.2 %; Mean Corpuscular HGB Conc 31.1 g/dL (31.6-35.5); Mean Corpuscular Hemoglobin 31.2 pg (28.0-33.3); Mean Corpuscular Volume 100.3 fL (83.0-100.0); Mean Platelet Volume 9.8 fL (9.4-12.4); Monocytes # 0.4 K/mcL (0.0-1.3); Monocytes % 4.8 %; Neutrophils # 7.2 K/mcL (1.6-8.9); Platelet Count 126 K/mcL (140-400); Red Blood Count 3.88 M/mcL (4.19-5.50); Red Cell Distribution Width 14.1 % (11.5-14.5)
[2017-04-30 04:22] LABS: Calcium 7.9 mg/dL (8.6-10.8); Magnesium 1.8 mg/dL (1.6-2.6); Phosphorous 5.9 mg/dL (2.3-4.7); Potassium 5.3 mEq/L (3.5-4.5)
[2017-04-30] MEDS: Aspirin 325 MG TABLET PO SCH (08:27)
[2017-04-30] MEDS: amLODIPine 5 MG TABLET PO SCH ×2 (08:28→20:24)
[2017-04-30] MEDS: Isosorbide MONOnitrate (24 HR) 60 MG TAB.ER.24H PO SCH (08:28)
[2017-04-30] MEDS: Renal Vitamin 1 MG CAPSULE PO SCH (08:28)
[2017-04-30] MEDS: hydrALAZINE 25 MG TABLET PO SCH ×3 (08:28→20:23)
[2017-04-30] MEDS: levoFLOXacin 250 MG TABLET PO SCH (08:29)
[2017-04-30] MEDS: cloNIDine HCl 0.1 MG TABLET PO SCH ×3 (08:30→20:23)
[2017-04-30] MEDS: *HR* Heparin 5,000 UNIT/ML VIAL SQ SCH ×2 (08:31→20:22)
--- NOTE | 2017-04-30 09:24 | Nephrology Progress Note ---
Date of Encounter: 04/30/17 Time of Encounter: 08:50 - Assessment and Plan (1) ESRD on dialysis Current Visit: Yes Status: Chronic Acute on chronic respiratory failure. ESRD. HD today, keeping MWF schedule. Orders given. Neuro consult appreciated. Subjective Principal diagnosis: Hypoxemia Interval history: Alert, talkative. No new complaints. at bedside. Objective - Vital Signs Vital signs: Vital Signs Temp Pulse Resp BP Pulse Ox 04/30/17 07:10 97.8 F 62 15 171/72 100 04/30/17 03:46 97.8 F 63 13 139/44 100 04/30/17 03:37 14 100 04/29/17 23:39 98.0 F 63 13 188/59 100 04/29/17 22:41 14 100 04/29/17 21:58 98.1 F 60 14 203/91 100 04/29/17 16:06 16 96 04/29/17 15:53 98.0 F 62 16 197/101 95 04/29/17 11:43 98.3 F 62 16 149/59 95 04/29/17 11:15 174/75 04/29/17 10:53 16 95 Intake and Output 04/29/17 04/30/17 04/30/17 23:59 07:59 15:59 Intake Total 120 / 120 0 / 0 Output Total 0 / 0 Balance 120 / 120 0 / 0 Intake: Oral 120 / 120 0 / 0 Output: Urine 0 / 0 Other: Meal Dinner Percent of Meal Consumed 100% Weight 62.46 kg Blood Glucose* 101 116 Patient Weight 04/30/17 23:59 Weight 62.46 kg - General Appearance General appearance: Present: cachectic EENT: Present: mucous membranes moist Neck: Present: no JVD Respiratory: Present: clear Cardiology: Present: no edema, regular rate, regular rhythm Gastrointestinal: Present: normoactive bowel sounds, no tenderness Neurologic: Present: alert and oriented x3 Psychiatric: Present: mood/affect appropriate, cooperative - Lab 04/30/17 03:00 04/30/17 03:00 Most recent lab results Calcium 7.9 mg/dL (8.6-10.8) L 04/30/17 03:00 Phosphorus 5.9 mg/dL (2.3-4.7) H 04/30/17 03:00 Magnesium 1.8 mg/dL (1.6-2.6) 04/30/17 03:00 Consult Discharge Plan - Plan Referrals: Unassigned,Provider [Primary Care Provider] -
[2017-04-30] MEDS: (Lubiprostone [Amitiza] 24 MCG) PO SCH (09:40)
[2017-04-30] MEDS ORDERED: 0.9 % Sodium Chloride 250 ML IVC PRN (10:04)
[2017-04-30] MEDS ORDERED: 0.9 % Sodium Chloride 2,000 ML ONE (11:26)
--- NOTE | 2017-04-30 11:49 | Internal Med Progress Note ---
Date of Encounter: 04/30/17 Time of Encounter: 11:49 - Assessment and plan (1) Acute and chronic respiratory failure Current Visit: Yes Status: Acute Assessment and plan: secondary to the mucus plug in left mainstem bronchus pulmonology input noted and appreciated s/p bronchoscopy (04/27/17). Respiratory culture positive for Gram negative Wyatt Continue Levaquin will f/u official culture results and alter abx therapy as per culture results currently saturating well on nasal cannula will continue to closely monitor D/C pending final culture results Qualifiers: Respiratory failure complication: hypoxia Qualified Code(s): J96.21 - Acute and chronic respiratory failure with hypoxia (2) ESRD on dialysis Current Visit: Yes Status: Chronic Assessment and plan: Nephro consultation appreciated will continue HD on MWF Scheduled for HD today (3) DVT prophylaxis Current Visit: No Status: Acute Assessment and plan: HEparin SQ (4) Hypertension Current Visit: Yes Status: Chronic Assessment and plan: Will continue home medications and Hydralazine prn will closely monitor Hydralazine 10mg IV q6h prn SBP>150 Qualifiers: Hypertension type: essential hypertension Qualified Code(s): I10 - Essential (primary) hypertension (5) Cachexia Current Visit: Yes Status: Chronic Assessment and plan: Neurology consultation appreciated pt to follow up with Dr. Wade/Shantell as outpatient family aware and in agreement - Subjective Interval history: Patient seen and examined with present at bedside. Resting in bed and reports of feeling better and would like to be discharged to home. No overnight issues reported. s/p bronchoscopy (04/27/17) discharge pending finalization of respiratory cultures - Constitutional Vitals: Temp Pulse Resp BP Pulse Ox 97.8 F 62 17 171/72 100 04/30/17 07:10 04/30/17 07:10 04/30/17 10:51 04/30/17 07:10 04/30/17 10:51 General appearance: Present: cachectic, cooperative, A&O X 3, no acute distress , underweight, answers questions appropriately - Head Head exam: Present: atraumatic, normocephalic - Eye Eye exam: Present: conjuntiva pink, sclera anicteric - Respiratory Respiratory exam: Present: CTAB. Absent: respiratory distress, wheezes - Cardiovascular Cardiovascular exam: Present: RRR, +S1, +S2. Absent: diastolic murmur, gallop, rubs, systolic murmur - GI/Abdominal GI/Abdominal exam: Present: normal bowel sounds, soft, no peritoneal signs. Absent: distended, tenderness - Extremities Exam Extremities exam: Present: warm, radial pulses palpable and symetrical. Absent : calf tenderness, pedal edema - Neurological Exam Neurological exam: Present: alert, oriented X3 - Psychiatric Psychiatric exam: Present: normal affect, normal mood Internal Medicine: Result - Labs CBC & Chem 7: 04/30/17 03:00 04/30/17 03:00 Labs: Short CBC 04/30/17 Range/Units 03:00 WBC 8.2 (4.3-11.1) K/mcL Hgb 12.1 L (12.9-16.9) g/dL Hct 38.9 (37.5-50.1) % Plt Count 126 L (140-400) K/mcL Neutrophils # 7.2 (1.6-8.9) K/mcL BMP 04/30/17 03:00 Sodium 133 L Potassium 5.3 H Chloride 97 L Carbon Dioxide 26 BUN 42 H D Creatinine 2.71 H Glucose 99 Calcium 7.9 L Consult Discharge Plan - Plan Referrals: Unassigned,Provider [Primary Care Provider] -
[2017-04-30] MEDS: tiZANidine 4 MG TABLET PO PRN (14:11)
--- NOTE | 2017-04-30 14:32 | Electrocardiograph Report ---
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
[2017-04-30] MEDS: traZODone 50 MG TABLET PO SCH (20:24)
[2017-05-01] MEDS: *HR* Methadone 10 MG TABLET PO SCH ×3 (00:43→14:35)
[2017-05-01] MEDS: Insulin LISPRO 300 UNITS/3 ML VIAL SQ SCH ×3 (00:46→12:23)
[2017-05-01] MEDS: Ipratropium/Albuterol Neb 3 ML IH SCH ×3 (04:41→16:16)
[2017-05-01 06:48] LABS: Basophils % 0.1 %; Eosinophils # 0.1 K/mcL (0.0-0.6); Eosinophils % 0.7 %; Hematocrit 41.2 % (37.5-50.1); Hemoglobin 12.9 g/dL (12.9-16.9); Immature Granulocytes % 0.6 % (0-4); Lymphocytes # 0.4 K/mcL (0.6-4.6); Lymphocytes % 4.7 %; Mean Corpuscular HGB Conc 31.3 g/dL (31.6-35.5); Mean Corpuscular Hemoglobin 31.5 pg (28.0-33.3); Mean Corpuscular Volume 100.7 fL (83.0-100.0); Mean Platelet Volume 10.1 fL (9.4-12.4); Monocytes # 0.4 K/mcL (0.0-1.3); Monocytes % 4.5 %; Neutrophils # 7.7 K/mcL (1.6-8.9); Platelet Count 113 K/mcL (140-400); Red Blood Count 4.09 M/mcL (4.19-5.50); Red Cell Distribution Width 14.4 % (11.5-14.5); Segmented Neutrophils % 89.4 %
[2017-05-01 07:09] LABS: Calcium 8.3 mg/dL (8.6-10.8); Magnesium 1.7 mg/dL (1.6-2.6); Phosphorous 4.7 mg/dL (2.3-4.7); Potassium 4.8 mEq/L (3.5-4.5)
[2017-05-01] MEDS: Renal Vitamin 1 MG CAPSULE PO SCH (07:19)
[2017-05-01] MEDS: Isosorbide MONOnitrate (24 HR) 60 MG TAB.ER.24H PO SCH (07:19)
[2017-05-01] MEDS: hydrALAZINE 25 MG TABLET PO SCH ×2 (07:19→14:31)
[2017-05-01] MEDS: cloNIDine HCl 0.1 MG TABLET PO SCH ×2 (07:20→14:31)
[2017-05-01 07:21] VITALS: BP 164/92
[2017-05-01] MEDS: amLODIPine 5 MG TABLET PO SCH (07:21)
[2017-05-01] MEDS: Aspirin 325 MG TABLET PO SCH (07:21)
[2017-05-01] MEDS: levoFLOXacin 250 MG TABLET PO SCH (07:22)
[2017-05-01] MEDS: *HR* Heparin 5,000 UNIT/ML VIAL SQ SCH (07:23)
[2017-05-01] MEDS: (Lubiprostone [Amitiza] 24 MCG) PO SCH (12:52)
--- NOTE | 2017-05-01 13:54 | Nephrology Progress Note ---
Date of Encounter: 05/01/17 Time of Encounter: 13:52 - Assessment and Plan (1) ESRD on dialysis Current Visit: Yes Status: Chronic The patient continues to receive dialysis every Sunday. I will make some adjustments to his antihypertensive medications. Patient was seen over the weekend by neurology for progressive muscle wasting. The neurologist requested some research lab be drawn. I was provided the paperwork. I was asked to sign the paper. I signed the paper. The lab studies cannot be ordered through the computer. I gave the request for the lab studies to the patient's RN. She said she would contact the lab. The patient is anxious to be discharged home. We will follow-up on his outpatient culture results. (2) Muscle wasting and atrophy, not elsewhere classified, other site Current Visit: Yes Status: Acute (3) Acute and chronic respiratory failure Current Visit: Yes Status: Acute Qualifiers: Respiratory failure complication: hypoxia Qualified Code(s): J96.21 - Acute and chronic respiratory failure with hypoxia (4) COPD (chronic obstructive pulmonary disease) Current Visit: Yes Status: Chronic Qualifiers: COPD type: emphysema Emphysema type: centrilobular Qualified Code(s): J43.2 - Centrilobular emphysema Subjective Principal diagnosis: Hypoxemia Interval history: Patient reports she is feeling better. He is anxious to be discharged home. Blood pressure remains suboptimal. Objective - Vital Signs Vital signs: Vital Signs Temp Pulse Resp BP Pulse Ox 05/01/17 11:07 12 100 05/01/17 07:00 66 12 164/92 05/01/17 04:43 16 04/30/17 23:16 97.7 F 59 16 165/71 04/30/17 22:34 16 04/30/17 20:02 04/30/17 18:42 97.6 F 61 18 173/104 04/30/17 16:38 97.9 F 59 15 171/70 04/30/17 15:55 97.6 F 16 182/83 04/30/17 15:45 141/67 04/30/17 15:30 135/66 04/30/17 15:15 147/68 04/30/17 15:00 148/68 04/30/17 14:45 161/83 04/30/17 14:30 162/71 04/30/17 14:15 154/74 07/24/17 14:00 161/62 Intake and Output 04/30/17 05/01/17 05/01/17 23:59 07:59 15:59 Intake Total 0 / 0 660 / 660 Output Total 0 / 0 Balance 0 / 0 660 / 660 Intake: Oral 0 / 0 660 / 660 Output: Urine 0 / 0 Other: Meal Dinner Lunch Percent of Meal Consumed 95% 100% Weight 60.3 kg 60.3 kg Blood Glucose* 85 84 121 Patient Weight 05/01/17 23:59 Weight 60.3 kg - General Appearance Exam: Patient is alert and oriented. He is in no acute distress. Blood pressure is 164/97. Patient exhibits muscle wasting. Lungs smidge breath sounds otherwise clear. Heart regular rhythm. Abdomen is benign. There is no lower extremity swelling. - Lab 05/01/17 05:43 05/01/17 05:43 Most recent lab results Calcium 8.3 mg/dL (8.6-10.8) L 05/01/17 05:43 Phosphorus 4.7 mg/dL (2.3-4.7) 05/01/17 05:43 Magnesium 1.7 mg/dL (1.6-2.6) 05/01/17 05:43 Consult Discharge Plan - Plan Referrals: Unassigned,Provider [Primary Care Provider] - Melissa Juarez [Non-Partnered Physician] - (called and requested appointment )
--- NOTE | 2017-05-01 15:06 | Discharge Summary ---
Date of Encounter: 05/01/17 Time of Encounter: 12:30 - Discharge Diagnosis (1) Acute and chronic respiratory failure Priority: Primary Status: Resolved Qualifiers: Respiratory failure complication: hypoxia Qualified Code(s): J96.21 - Acute and chronic respiratory failure with hypoxia (2) ESRD on dialysis Priority: Secondary Status: Chronic (3) DVT prophylaxis Priority: Secondary Status: Acute (4) Hypertension Priority: Secondary Status: Chronic Qualifiers: Hypertension type: essential hypertension Qualified Code(s): I10 - Essential (primary) hypertension (5) Cachexia Priority: Secondary Status: Chronic - Discharge Medications Prescriptions: levoFLOXacin [Levaquin] 250 mg PO DAILY #4 tab Sevelamer [Renvela] 1,600 mg PO TIDWM #60 tab Home Medications: Albuterol Sulfate [Ventolin Hfa] 1 - 2 puff IH Q4-6H PRN 11/23/16 [History] Aspirin 325 mg PO DAILY 11/23/16 [History] Atenolol [Tenormin] 25 mg PO DAILY 11/23/16 [History] Atorvastatin Calcium [Lipitor] 20 mg PO QPM 11/23/16 [History] Docusate Sodium [Dok] 200 mg PO DAILY 11/23/16 [History] EPINEPHrine [Epipen] 0.3 mg IM ONCE PRN 11/23/16 [History] Ergocalciferol (VITAMIN D2) [Vitamin D2] 50,000 unit PO MO 11/23/16 [History] Escitalopram [Lexapro] 20 mg PO DAILY 11/23/16 [History] Furosemide [Lasix] 80 mg PO BID 11/23/16 [History] Hydralazine HCl 100 mg PO TID 11/23/16 [History] Isosorbide MONOnitrate (24 HR) [Imdur] 60 mg PO DAILY 11/23/16 [History] LORazepam [Ativan] 1 mg PO BID PRN 11/23/16 [History] Lisinopril [Zestril] 10 mg PO BID 11/23/16 [History] Lubiprostone [Amitiza] 24 mcg PO DAILY 11/23/16 [History] Methadone 10 mg PO 5XD PRN 11/23/16 [History] Nitroglycerin [Nitrostat] 0.4 mg SL Q5M PRN 11/23/16 [History] Omeprazole 20 mg PO DAILY 11/23/16 [History] Ondansetron ODT [Zofran ODT] 4 mg SL Q4H PRN 11/23/16 [History] Renal Vitamin [Renal Caps Softgel] 1 mg PO DAILY 11/23/16 [History] Tamsulosin HCl [Flomax] 0.4 mg PO BID 11/23/16 [History] Tizanidine HCl [Zanaflex] 4 mg PO TID PRN 11/23/16 [History] Trazodone HCl 100 mg PO HS 11/23/16 [History] amLODIPine [Norvasc] 10 mg PO BID 11/23/16 [History] cloNIDine HCl [Clonidine HCl] 0.3 mg PO TID 11/23/16 [History] Budesonide Neb [Pulmicort Neb] 0.5 mg IH BIDR #1 inhsol 11/25/16 [Rx] Metoclopramide HCl 5 mg PO HS 04/25/17 [History] Sevelamer [Renvela] 1,600 mg PO TIDWM #60 tab 05/01/17 [Rx] levoFLOXacin [Levaquin] 250 mg PO DAILY #4 tab 05/01/17 [Rx] Allergies/Adverse Reactions: Allergies BEE VENOM Allergy (Uncoded 11/23/16 09:18) Difficulty Swallowing BARIUM IODIDE Adverse Reaction (Uncoded 11/23/16 09:18) Vomiting IVP DYE Adverse Reaction (Uncoded 11/23/16 09:18) Vomiting Procedures/tests Complete & Pending: Procedures Performed prior 72 hours Category Date Time Status EKG [ECG 12 lead ECG] [ECG] Routine Y 04/29/17 08:41 Completed Date of admission: 04/25/17 23:21 Primary care physician: Provider Unassigned Consults: 04/25/17 23:46 Consult to Nephrology [CONS] Routine Consulting Provider: [facility] Reason for Consult: pls assist in managing this pt known to you with ESRD on HD MWF, thank you Call Completed: No 04/26/17 04:20 Consult to Pulmonology [CONS] Routine Consulting Provider: [facility] Reason for Consult: pls assist in managing this pt with left mainstem mucus plugging for consideration of bronch, Chest CT is in PACS, thanks Call Completed: No 04/26/17 11:40 Consult to Speech Therapy [CONS] Routine Comment: Evaluate, develop and implement POC Reason for Consult: speech evaluation: concern for aspiration Time Notified: 11:42 Call Completed: No 04/27/17 09:15 Consult to Dialysis [CONS] ONCE 04/28/17 08:47 Consult to Neurology [CONS] Routine Consulting Provider: [facility] Reason for Consult: evaluate for possible muscle wasting disease Time Notified: 08:47 Call Completed: Yes 04/30/17 10:15 Consult to Dialysis [CONS] ONCE Discharging clinician: Sharon Toussaint Anticipated date of discharge: 05/01/17 - Patient Status Disposition: Home Health Service Condition: Good Functional capacity at discharge: bed bound Overall status at discharge: patient is back to baseline - Discharge Instructions Follow Up With: Unassigned,Provider [Primary Care Provider] - Melissa Juarez [Non-Partnered Physician] - (called and requested appointment ) Additional Instructions: Please follow up with your primary care physician, wafer cutter, and neurologist within one week after your discharge from the hospital. Please continue oral antibiotics as prescribed. your primary care physician and wafer cutter will follow up with your respiratory culture results Please resume all your home medications prescribed by your primary care physician. You were noted to have HbA1C of <3.9 which classifies you as a nondiabetic. All your home insulin and diabetes medications have been discontinued. Continue to monitor your blood glucose at home until your follow up with your primary care physician. Please inform your primary care physician of this change. - Diet and Activity Activity: as per physical therapy Diet: low salt diet Hospital course: Mr. Prater is a 57 year old male with ESRD on HD, CAD, COPD on LTOT, HTN, HLD, neuromuscular disease, bedbound who was admitted for acute respiratory failure secondary to a mucus plugging of the left main endobronchial stem. Pt was followed by pulmonology and underwent bronchoscopy. He had complete resolution of his respiratory failure with return to his baseline respiratory status. His respiratory cultures were positive for gram negative rods for which he was started on abx. Given his debilitated state, neurology was consulted and there was a concern for neuromuscular disease. Pt will be evaluated further as an outpatient by neurology. Pt remained hypertensive and his BP meds will be adjusted by Dr. Key as an outpatient. His respiratory official results will also be followed by Dr. Key and his PCP. Pt will be discharged to home with follow up with nephro, pcp, and neurology. pt and demonstrate understanding of his diagnosis and agree with the discharge care and plan. - Time Spent with Patient Total time spent providing and/or coordinating discharge services: Greater than 30 minutes - Constitutional Vitals: Temp Pulse Resp BP Pulse Ox 97.7 F 66 12 164/92 100 04/30/17 23:16 05/01/17 07:00 05/01/17 11:07 05/01/17 07:00 05/01/17 11:07 General appearance: Present: cachectic, cooperative, A&O X 3, no acute distress , underweight, answers questions appropriately - Head Head exam: Present: atraumatic, normocephalic - Eye Eye exam: Present: conjuntiva pink, sclera anicteric - Respiratory Respiratory exam: Present: CTAB. Absent: accessory muscle use, rales, rhonchi, wheezes - Cardiovascular Cardiovascular exam: Present: RRR, +S1, +S2. Absent: diastolic murmur, gallop, rubs, systolic murmur - GI/Abdominal GI/Abdominal exam: Present: normal bowel sounds, soft, no peritoneal signs. Absent: distended, tenderness - Extremities Exam Extremities exam: Present: warm, radial pulses palpable and symetrical. Absent : calf tenderness, cyanotic, pedal edema - Neurological Exam Neurological exam: Present: alert, oriented X3 - Psychiatric Psychiatric exam: Present: normal affect, normal mood
--- NOTE | 2017-05-01 15:21 | Physician Discharge Referral ---
Home Health/Hosp Referral Info Transfer to: Home Health Provider in Charge Post Discharge: PCP - Diagnosis (1) Acute and chronic respiratory failure Priority: Primary Status: Resolved (2) ESRD on dialysis Priority: Secondary Status: Chronic (3) DVT prophylaxis Priority: Secondary Status: Acute (4) Hypertension Priority: Secondary Status: Chronic (5) Cachexia Priority: Secondary Status: Chronic - Respiratory Orders Smoking Cessation: Smoking cessation has been advised. For more information, call the [place] Tobacco Quit Line at 9-499-WQKC-NOW. - Services Needed Following services are medically necessary services: Nursing, Home Health Aide, Physical Therapy, Occupational Therapy, Speech Therapy - Transfer Medications Prescriptions: levoFLOXacin [Levaquin] 250 mg PO DAILY #4 tab Sevelamer [Renvela] 1,600 mg PO TIDWM #60 tab Home Medications: Albuterol Sulfate [Ventolin Hfa] 1 - 2 puff IH Q4-6H PRN 11/23/16 [History] Aspirin 325 mg PO DAILY 11/23/16 [History] Atenolol [Tenormin] 25 mg PO DAILY 11/23/16 [History] Atorvastatin Calcium [Lipitor] 20 mg PO QPM 11/23/16 [History] Docusate Sodium [Dok] 200 mg PO DAILY 11/23/16 [History] EPINEPHrine [Epipen] 0.3 mg IM ONCE PRN 11/23/16 [History] Ergocalciferol (VITAMIN D2) [Vitamin D2] 50,000 unit PO MO 11/23/16 [History] Escitalopram [Lexapro] 20 mg PO DAILY 11/23/16 [History] Furosemide [Lasix] 80 mg PO BID 11/23/16 [History] Hydralazine HCl 100 mg PO TID 11/23/16 [History] Isosorbide MONOnitrate (24 HR) [Imdur] 60 mg PO DAILY 11/23/16 [History] LORazepam [Ativan] 1 mg PO BID PRN 11/23/16 [History] Lisinopril [Zestril] 10 mg PO BID 11/23/16 [History] Lubiprostone [Amitiza] 24 mcg PO DAILY 11/23/16 [History] Methadone 10 mg PO 5XD PRN 11/23/16 [History] Nitroglycerin [Nitrostat] 0.4 mg SL Q5M PRN 11/23/16 [History] Omeprazole 20 mg PO DAILY 11/23/16 [History] Ondansetron ODT [Zofran ODT] 4 mg SL Q4H PRN 11/23/16 [History] Renal Vitamin [Renal Caps Softgel] 1 mg PO DAILY 11/23/16 [History] Tamsulosin HCl [Flomax] 0.4 mg PO BID 11/23/16 [History] Tizanidine HCl [Zanaflex] 4 mg PO TID PRN 11/23/16 [History] Trazodone HCl 100 mg PO HS 11/23/16 [History] amLODIPine [Norvasc] 10 mg PO BID 11/23/16 [History] cloNIDine HCl [Clonidine HCl] 0.3 mg PO TID 11/23/16 [History] Budesonide Neb [Pulmicort Neb] 0.5 mg IH BIDR #1 inhsol 11/25/16 [Rx] Metoclopramide HCl 5 mg PO HS 04/25/17 [History] Sevelamer [Renvela] 1,600 mg PO TIDWM #60 tab 05/01/17 [Rx] levoFLOXacin [Levaquin] 250 mg PO DAILY #4 tab 05/01/17 [Rx] Allergies/Adverse Reactions: Allergies BEE VENOM Allergy (Uncoded 11/23/16 09:18) Difficulty Swallowing BARIUM IODIDE Adverse Reaction (Uncoded 11/23/16 09:18) Vomiting IVP DYE Adverse Reaction (Uncoded 11/23/16 09:18) Vomiting Certification: Further, I certify that my clinical findings support that this patient is homebound (i.e. absences from home require considerable and taxing effort and are for medical reasons or islam services or infrequently or short duration when for other reasons) because: Homebound Reason: Patient requires assistance of a person or device to safely leave home Attestation: My signature below is to certify that this patient is under my care and that I, or nurse practitioner, or a physician's optometry assistant working with me, has a face-to -face encounter with this patient.
== END 2017-05-01 17:34 | disposition home health service (06) | DRG 166 ==
LOC: 2NENU
PROVIDERS: ADMIT Family Medicine; ATTEND Internal Medicine